=== PATIENT | male | born 1940 | race Caucasian/White ===

== ENCOUNTER 2024-03-25 16:42 | Inpatient (IN) | payer MEDICARE, SELFPAY ==
[2024-03-25 16:43] VITALS: BMI 20.7
[2024-03-25 17:09] VITALS: BP 98/63; PULSE 75; RESP 20; TEMP 36.9; O2SAT 96
--- NOTE | 2024-03-25 17:10 | XR_ITS ---
Examination: Right femur 2 views Technique: AP lateral right femur 2 views Exam date and time: March 25, 2024 at 1744 hrs. Indications: Patient fell today with injury to the femur, femur pain. Findings: Acute intertrochanteric fracture right hip, no significant displacement Shaft of the femur intact Impression: Acute intertrochanteric fracture right hip
--- NOTE | 2024-03-25 17:10 | XR_ITS ---
Examination:Right hip AP, lateral, AP pelvis 3 views Technique: Hip AP lateral, AP pelvis, 3 views Exam date and time: March 25, 2024 1737 hrs. Indications: Patient fell today with into the right hip, right hip pain. Findings: Acute intertrochanteric fracture right hip No significant displacement Left hip bones of the pelvis intact Impression: Acute intertrochanteric fracture right hip
--- NOTE | 2024-03-25 17:10 | XR_ITS ---
Examination: Knee, right , 3 views Technique: Knee AP, lateral, oblique 3 views Date and time of exam: 22 hours Indications: Patient fell today with injury to the knee, knee pain. Findings: No fracture or dislocation Small knee effusion Impression: No fracture or dislocation
--- NOTE | 2024-03-25 17:11 | PD.EDRME ---
Rapid Medical Screening Exam RME Arrival date/time: 03/25/24 16:42 84-year-old male presents emergency department complains of right knee pain right upper leg pain and hip pain after fall today Chief Complaint: Fall Vital signs: Vital Signs Temperature 98.5 F 03/25/24 17:09 Pulse Rate 75 03/25/24 17:09 Respiratory Rate 20 03/25/24 17:09 Blood Pressure 98/63 03/25/24 17:09 Pulse Oximetry (%) 96 03/25/24 17:09 Oxygen Delivery Method Room Air 03/25/24 17:09
--- NOTE | 2024-03-25 18:31 | EDNOTE_ITS ---
ED Fall Injury RME/HPI General Chief Complaint: Fall Stated Complaint: FALL C/O RT SIDE LEG/HIP PAIN Arrival date/time: 03/25/24 16:42 Limitations: no limitations RME / HPI RME / HPI Narrative: DR. ROBERTS MAIN ED EVALUATION: 84 year old male presents to the Emergency Department with complaints right knee pain, right upper leg pain, and right hip pain secondary to fall. Pain is described as aching and rated mild to moderate in severity. Movement exacerbates the pain. Patient was trying to get up his trailer stairs, which is about 2 feet up and fell down on his right side. The fall happened today at 430 PM. No numbness or weakness. No head trauma, no loss of consciousness. PMHx: Left shoulder replacement surgery. GERD, hypertension, and high cholesterol. Social Hx: No tobacco, alcohol, or substance use. Related Data Home Medications ?Medication ?Instructions ?Recorded ?Confirmed amlodipine 10 mg tablet 10 mg PO QDAY 10/11/17 03/25/24 benazepril 20 mg tablet 20 mg PO QDAY 10/11/17 03/25/24 oxycodone-acetaminophen 10 mg-325 0.5 tab PO BID PRN pain 10/11/17 03/25/24 mg tablet simvastatin 40 mg tablet 40 mg PO QDAY 10/11/17 03/25/24 Allergies Allergy/AdvReac Type Severity Reaction Status Date / Time No Known Allergies Allergy Verified 03/25/24 16:45 Review of Systems Review of Systems Systems Reviewed: All systems reviewed, normal except as documented Narrative Review of Systems: GEN: No fever, no chills, no weight loss EYES: No discharge, no visual changes, no pain HEENT: No ear pain, no congestion, no sore throat PULM: No shortness of breath, no cough, no congestion CV: No chest pain, no dyspnea on exertion, no palpitations GI: No nausea, no vomiting, no diarrhea, no pain, no constipation : No frequency, no urgency and no dysuria MUSC/SKEL: + right knee pain, + right upper leg pain, + right hip pain (secondary to fall see HPI) no back pain SKIN: No rash PSYCH: No hallucinations, no depression HEME/LYMPH: No easy bleeding or bruising tendencies NEURO: No weakness, no headache Past Medical History Social History SMOKING STATUS: Never smoker SUBSTANCE USE: does not use ALCOHOL: Never ED Exam Narrative Physical exam: Exam no obvious deformity on the right upper extremity that is noted while sitting in a wheelchair. Patient is fully clothed and will need to ingest him when he gets into a bed. Normal sensation to touch on the lower extremity. No obvious bleeding on his close. General Limitations: Present no limitations Head Head exam: Present atraumatic; Absent normocephalic Eye Eye exam: Present normal appearance and EOMI ENT ENT exam: Present mucous membranes moist Neck Neck exam: Present full ROM and trachea midline; Absent normal inspection, tenderness, meningismus or lymphadenopathy Respiratory Respiratory exam: Present normal lung sounds bilaterally; Absent respiratory distress, wheezes or stridor Cardiovascular Cardiovascular exam: Present regular rate and normal rhythm; Absent systolic murmur or diastolic murmur Abdominal Exam Abdominal exam: Absent soft, distention, tenderness or guarding Extremities Exam Extremities exam: Present normal inspection and other (Not shortened. Not externally rotated. Tender palpation along the left hip. No ecchymosis.) Back Exam Back exam: Present normal inspection, straight leg raise (R) and straight leg raise (L) (Limited the pain); Absent tenderness, CVA tenderness (R) or CVA tenderness (L) Psychiatric Psychiatric exam: Present normal affect and normal mood; Absent depressed or agitated Skin Skin exam: Present warm, dry and intact; Absent rash, cyanosis, diaphoresis, erythema, pallor or mottled Course Course Course Narrative: Placed into room. All xrays were obtained. Quality Measures none Orders Category Date Time Status COVID-19 Screening Questionnaire NOW Care 03/25/24 20:34 Active Consent [Obtain Written Consent For:] .ONCE Care 03/25/24 20:39 Active Decision to Admit X1 Care 03/25/24 20:34 Completed Insert IV NOW Care 03/25/24 18:15 Active Consult to Orthopedic Stat Cons 03/25/24 21:01 Ordered XR femur RT 2V Stat Exams 03/25/24 17:10 Completed XR hip RT w pelvis 2-3V Stat Exams 03/25/24 17:10 Completed XR knee RT 3V Stat Exams 03/25/24 17:10 Completed CBC Stat Lab 03/25/24 18:27 Completed Comprehensive Metabolic Panel Stat Lab 03/25/24 18:27 Completed Partial Thromboplastin Time Stat Lab 03/25/24 18:27 Completed Prothrombin Time with INR Stat Lab 03/25/24 18:27 Completed Morphine Inj Med 03/25/24 20:17 Discontinued 4 mg IVP X1 ONE Ondansetron Inj [Zofran Inj] Med 03/25/24 20:17 Discontinued 4 mg IV X1 ONE Reevaluation(s) Reevaluation #1: pain improved Time: 21:32 Vital Signs Vital signs: Vital Signs Temperature 98.5 F 03/25/24 17:09 Pulse Rate 75 03/25/24 17:09 Respiratory Rate 20 03/25/24 17:09 Blood Pressure 98/63 03/25/24 17:09 Pulse Oximetry (%) 96 03/25/24 17:09 Oxygen Delivery Method Room Air 03/25/24 17:09 Procedures -ED EKG Interpretation #1: Date of EK03/25/24 Time of EK:50 Rate: 64 Interpretation: Interpreted by me Additional EKG comment: Left bundle branch block First-degree AV block. IN interval 222. Impression left bundle branch block. First-degree AV block. No previous EKG. Fall MDM Narrative MDM Narrative:: I, Silke Londono am scribing for and in the presence of Dr. Roberts. Patient presents with mechanical fall. The patient does not have chest pain or shortness of breath. EKG noted to have left bundle branch block. The patient does have history of high cholesterol, hypertension, no diabetes. At this time I do not feel the patient is having an MA. There is no Sgarbossa criteria on the EKG. And no previous family for comparison. Patient data External records reviewed:: [facility] [place] previous records (Reviewed last ED visit dated 10/11/17, discharged with the following: Finger sprain.) Clinical information provided by:: patient and family Social determinants that could affect healthcare access:: none Patient has the following chronic illnesses:: Left shoulder replacement surgery. GERD, hypertension, and high cholesterol. How is presenting disease/condition affected by chronic disease/condition?: uneffected by Evaluation data The following diagnostics were reviewed and interpreted by me:: lab results and radiology exam(s) Lab and/or radiology exams considered but not ordered:: none Interpretation Summary: Procedure(s): XR knee RT 3V Accession Number(s): [id number] cc: Bipin (MAC),Nathan WATTS; Joseph Raya MD; NO PRIMARY/FAMILY,PHYSICIAN~ Examination: Knee, right , 3 views Technique: Knee AP, lateral, oblique 3 views Date and time of exam: 22 hours Indications: Patient fell today with injury to the knee, knee pain. Findings: No fracture or dislocation Small knee effusion Impression: No fracture or dislocation Dictated By: Joseph Raya MD Procedure(s): XR hip RT w pelvis 2-3V Accession Number(s): [id number] cc: Bipin (MAC),Nathan WATTS; Joseph Raya MD; NO PRIMARY/FAMILY,PHYSICIAN~ Examination:Right hip AP, lateral, AP pelvis 3 views Technique: Hip AP lateral, AP pelvis, 3 views Exam date and time: March 25, 2024 1737 hrs. Indications: Patient fell today with into the right hip, right hip pain. Findings: Acute intertrochanteric fracture right hip No significant displacement Left hip bones of the pelvis intact Impression: Acute intertrochanteric fracture right hip Dictated By: Joseph Ryaa MD Procedure(s): XR femur RT 2V Accession Number(s): [id number] cc: Bipin ([employer]),Nathan WATTS; Joseph Raya MD; NO PRIMARY/FAMILY,PHYSICIAN~ Examination: Right femur 2 views Technique: AP lateral right femur 2 views Exam date and time: March 25, 2024 at 1744 hrs. Indications: Patient fell today with injury to the femur, femur pain. Findings: Acute intertrochanteric fracture right hip, no significant displacement Shaft of the femur intact Impression: Acute intertrochanteric fracture right hip Dictated By: Joseph Raya MD Medications / Prescriptions Medications or Prescriptions considered but not ordered:: none Medication administrations:: Medication Administration History Hydrocodone Bitart/Acetaminophen (Hydrocodone/Apap 5/325 Tablet) 1 tab PO Q6HR PRN PRN Reason: Pain 4-6 Stop: 03/30/24 21:19 Folic Acid (Folic Acid 1 Mg Tablet) 1 mg PO BID [facility] Stop: 03/31/24 08:59 Lorazepam (Lorazepam 0.5 Mg Tablet) 0.5 mg PO Q4HR PRN PRN Reason: CIWA Score 2-6 Stop: 03/30/24 21:19 Lorazepam (Lorazepam 0.5 Mg Tablet) 1 mg PO Q4HR PRN PRN Reason: CIWA SCORE 7-11 Stop: 03/30/24 21:19 Lorazepam (Lorazepam 0.5 Mg Tablet) 2 mg PO Q4HR PRN PRN Reason: CIWA SCORE 12-15 Stop: 03/30/24 21:19 Morphine Sulfate (Morphine Sulf Inj 10 Mg/Ml Vial) 2 mg IVP Q4HR PRN PRN Reason: PAIN SCALE 7-10 (Severe Stop: 03/30/24 21:00 Last Admin: 03/26/24 03:15 Dose: 2 mg Documented By: Admin: 03/25/24 23:14 Dose: 2 mg Documented By: AM Ondansetron HCl (Ondansetron Inj 2 Mg/Ml Inj 2 Ml) 4 mg IV Q6H PRN; Protocol PRN Reason: NAUSEA OR VOMITING Stop: 04/24/24 21:00 Pantoprazole Sodium (Pantoprazole Inj 40 Mg Vial) 40 mg IVP QDAY [facility] Stop: 04/25/24 08:59 Thiamine HCl (Thiamine 100 Mg Tablet) 100 mg PO BID [facility] Stop: 03/31/24 08:59 Discontinued Medications Morphine Sulfate (Morphine Sulf Inj 10 Mg/Ml Vial) 4 mg IVP X1 ONE Stop: 03/25/24 20:18 Last Admin: 03/25/24 20:46 Dose: 4 mg Documented By: HEIDI Morphine Sulfate (Morphine Sulf Inj 10 Mg/Ml Vial) 2 mg IVP Q3HR PRN PRN Reason: PAIN SCALE 7-10 (Severe Stop: 03/30/24 21:00 Morphine Sulfate (Morphine Sulf Inj 10 Mg/Ml Vial) 0.5 mg IVP Q4HR PRN PRN Reason: Pain 4-6 Ondansetron HCl (Ondansetron Inj 2 Mg/Ml Inj 2 Ml) 4 mg IV X1 ONE; Protocol Stop: 03/25/24 20:18 Last Admin: 03/25/24 20:41 Dose: 4 mg Documented By: HEIDI see above Consultations Consultation(s) initiated? (list below): Yes Consultation #1 (Physician, Specialty, Details): Discussed test HPI, PMHx, lab, radiology results and/or management with ortho Dr. Gotti. Will consult an admission to the hospitalist. Time: 21:00 Consultation #2 (Physician, Specialty, Details): Discussed test HPI, PMHx, lab, radiology results and/or management with hospitalist. Will admit for further evaluation and management. Accepts patient for admission. Time: 21:05 Diagnosis Fall Differential Diagnosis: other (hip fracture, knee fracture, contusion, UTI,) Most likely diagnosis given after review of the tests above:: As noted below. Admission Indicated Admission indicated?: indicated Admission Request Was there a request for admission?: Yes Admission Attestation Admission request attestation: Discussed case with [] from Hospitalist service regarding admission. Discussed patients ED course, exam findings, labs, and radiology results. The Hospitalist [agrees,declines] to accept the patient for admission. Disposition Plan Disposition Plan: Admit Discharge Plan Plan Patient Disposition: Admit Acute Care w/in Hospital Patient condition on transfer: Stable Problem List Clinical Impression: Hip fracture, Complete left bundle branch block (LBBB), Fall
[2024-03-25 18:44] LABS: Basophils % (Auto) 0 % (0-2.5); Eosinophils # (Auto) 0.1 Thou/mm3 (0.0-0.5); Eosinophils % (Auto) 1 % (0-10); Immature Granulocytes % (Auto) 0 % (0-0); Immature Granulocytes Auto 0.05 Thou/mm3 (0.00-0.00); Lymphocytes % (Auto) 9 % (10-50); Mean Corpuscular HGB Conc 33.3 g/dl (31.0-37.0); Mean Corpuscular Hemoglobin 31.8 pg (25.0-35.0); Mean Corpuscular Volume 95 fL (80-100); Monocytes # (Auto) 0.8 Thou/mm3 (0.0-0.8); Monocytes % (Auto) 7 % (0-12); Neutrophils # (Auto) 9.8 Thou/mm3 (1.8-7.7); Neutrophils % (Auto) 83 % (37-80); Nucleated Red Blood Cell % 0 /100 WBC (0); Platelet Count 225 Thou/mm3 (140-440); RDW Standard Deviation 47.1 fL (35.1-43.9); Red Blood Count 3.46 Miln/mm3 (4.50-5.90); White Blood Count 11.8 Thou/mm3 (3.8-10.6)
[2024-03-25 19:21] LABS: INR 1.1 (0.9-1.3); Partial Thromboplastin Time 25.4 Seconds (22.0-36.0); Prothrombin Time 11.9 Seconds (9.0-12.2)
[2024-03-25 19:22] LABS: Alanine Aminotransferase 15 U/L (10-49); Albumin, Serum 4.7 gm/dL (3.4-4.8); Alkaline Phosphatase 57 U/L (46-116); Anion Gap 7 (7-16); Aspartate Amino Transferase 15 U/L (0-34); BUN/Creatinine Ratio 25 Ratio (12-20); Bilirubin,Total 0.5 mg/dL (0.3-1.2); Blood Urea Nitrogen 25 mg/dL (9-23); Calcium 9.6 mg/dL (8.3-10.6); Calcium (Corrected) 9.6 mg/dL (8.5-10.1); Carbon Dioxide 24.1 mMol/L (20.0-31.0); Chloride 102 mMol/L (98-107); Globulin 2.3 gm/dL (2.3-3.5); Glucose 100 mg/dL (74-106); Osmolality,Calculated 270 (275-295); Sodium 133 mMol/L (136-145); eGFR > 60 See Note
[2024-03-25 19:42] VITALS: BP 135/63; PULSE 71; RESP 18; TEMP 36.8; O2SAT 99
[2024-03-25] MEDS: ONDANSETRON INJ 2 MG/ML INJ 2 ML 4 MG IV (20:41)
[2024-03-25 20:46] VITALS: BP 136/68; PULSE 73; RESP 18; TEMP 36.7; O2SAT 97
[2024-03-25] MEDS: MORPHINE SULF INJ 10 MG/ML VIAL 4 MG IVP (20:46)
--- NOTE | 2024-03-25 20:59 | ESHP_ITS ---
Documentation for date of: 03/25/24 HPI History of Present Illness Chief complaint: Fall History of present illness: 84-year-old male with past medical history of hyperlipidemia, hypertension, metastatic colon cancer (metastasis to liver and lung, s/p lobectomy about 18 years ago) presenting to the ED on 03/25 after he fell from the bed of his trailer, which she states was about 2 feet. Patient denies having any concerning cardiac symptoms prior to the episode; denies having any dizziness, shortness of breath, chest pain/tightness, palpitations or double vision. Patient's fall was unwitnessed; however, patient's who is currently bedside states that she heard him fall and quickly rushed outside to see him. Patient did not lose consciousness and denies hitting his head anywhere at any time during the fall; he states that he fell on his right side and immediately felt sharp pain. Patient has not had a fall in the past; moreover, denies having any symptoms of fever/chills, nausea/vomiting/diarrhea/hematemesis, melena, hematochezia, dysuria or hematuria prior to the episode. Patient follows Dr. Milligan, cardiology, at [facility] where he is from; had an appointment scheduled on Wednesday 03/28, 6-month follow-up. Patient is Hoah[employer]ism; moreover, would like that to be noted in his chart and does not want any type of blood product. Medical history: As stated above Surgical history: Patient has had lumbar back surgery, colon cancer diagnosed 1995-10, colectomy, lobectomy of liver and left upper lobe of lung, last chemo session was about 18 years ago; left shoulder surgery September 2022 Allergies: NKDA Medications: Pending med rec Family history: Noncontributory Social history: Patient is originally from [place], lives in [place] with his , drinks 2 beers a day for the past 10 years, last drink was today, remote history of smoking cigarettes when he was in his early 20s, no illicit drug use ROS: All 12 systems assessed and the patient denies unless otherwise stated in HPI In the ED, patient presented normotensive, normal heart rate, respiratory rate 20, afebrile satting 96 on room air. Pertinent lab findings include WBC 11.8, hemoglobin 11 (MCV 95), platelet 225, sodium 133, potassium 5.0, creatinine 1.0. Imaging studies including knee x-ray, hip pelvis x-ray and femur x-ray confirmed acute right intertrochanteric hip fracture. Patient will be admitted for pain management along with surgery which is scheduled for 03/[address] Gotti, appreciate recommendations. Exam Vital Signs Temp Pulse Resp BP Pulse Ox O2 Del Method 98.2 F 71 18 135/63 H 99 Room Air 03/25/24 19:42 03/25/24 19:42 03/25/24 19:42 03/25/24 19:42 03/25/24 19:42 03/25/24 19:42 Narrative Exam Physical Exam: GENERAL: Awake, answering questions appropriately, appears stated age HEENT: NC/AT. Moist mucosa. PERRLA/EOMI, presbycusis apparent CARDIO: Heart RRR, no obvious murmurs, no JVD. PULM: No coughing or visible SOB. Lungs CTA B/L. GI: Abdomen soft, NT/ND, +BS. SKIN/MSK/EXT: R-hip tender to soft palpation, L hip not tender to palpation. No wounds/discoloration/rashes/edema/amputations. +Pedal pulses present B/L. NEURO: Oriented x3, training and development head strength 5/5, sensations intact bilaterally upper/lower extremities. Moves extremities x3; R lower extremity moves slightly secondary to pain Results: Labs 03/26/24 05:09 03/25/24 18:27 Labs: Short CBC 03/25/24 Range/Units 18:27 WBC 11.8 H (3.8-10.6) Thou/mm3 Hgb 11.0 L (13.5-16.0) g/dL Hct 33.0 L (41.0-53.0) % Plt Count 225 (140-440) Thou/mm3 BMP 03/25/24 18:27 Sodium 133 L Potassium 5.0 Chloride 102 Carbon Dioxide 24.1 BUN 25 H Creatinine 1.0 Glucose 100 Calcium 9.6 Liver Function 03/25/24 Range/Units 18:27 Total Bilirubin 0.5 (0.3-1.2) mg/dL AST 15 (0-34) U/L ALT 15 (10-49) U/L Alkaline Phosphatase 57 (46-116) U/L Albumin 4.7 (3.4-4.8) gm/dL Quality Measures Quality Measures VTE prophylaxis Advance care planning discussed with:: patient Medications Home Medications and Allergies Home Medications ?Medication ?Instructions ?Recorded ?Confirmed ?Type amlodipine 10 mg tablet 10 mg PO QDAY 10/11/17 03/25/24 History benazepril 20 mg tablet 20 mg PO QDAY 10/11/17 03/25/24 History oxycodone-acetaminophen 10 mg-325 0.5 tab PO BID PRN pain 10/11/17 03/25/24 History mg tablet simvastatin 40 mg tablet 40 mg PO QDAY 10/11/17 03/25/24 History Allergies Allergy/AdvReac Type Severity Reaction Status Date / Time No Known Allergies Allergy Verified 03/25/24 16:45 Visit Medications Discontinued Medications Morphine Sulfate (Morphine Sulf Inj 10 Mg/Ml Vial) 4 mg IVP X1 ONE Stop: 03/25/24 20:18 Last Admin: 03/25/24 20:46 Dose: 4 mg Ondansetron HCl (Ondansetron Inj 2 Mg/Ml Inj 2 Ml) 4 mg IV X1 ONE; Protocol Stop: 03/25/24 20:18 Last Admin: 03/25/24 20:41 Dose: 4 mg Assessment & Plan Plan 84-year-old male with past medical history of hyperlipidemia, hypertension, metastatic colon 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 Gotti, appreciate recommendations. #R hip intertrochanteric fracture #Leukocytosis Patient apparently fell from bed of his trailer which was about 2 feet Denies having any concerning symptoms prior to the episode; the fall was unwitnessed but he did not lose consciousness or hit his head Presenting to the ED with sharp right-sided pain; on exam has some tenderness and reduced mobility In the ED, knee x-ray, hip/pelvic x-ray and femur x-ray ordered which confirmed right hip intrathoracic fracture Dr. Gotti, orthopedic surgeon, consulted and will apparently do surgery tomorrow 03/26 In the ED, patient received Zofran and morphine for nausea and pain control Leukocytosis likely secondary to acutely ill status Plan: Multimodal analgesia Zofran as needed for nausea PT consult, patient has been made aware for possible SNF need after surgery N.p.o. after midnight PT/PTT/INR Follow-up with morning labs #Alcohol-use Disorder Patient apparently drinks at least 2 beers a day for the past 10 years or so Last drink was today and apparently he asked for a bottle of beer after falling Plan: Will start CIWA protocol Thiamine and folate ordered #Normocytic Anemia Ddx: MUNDO, AOCD, Zinc/Copper def, aplastic anemia, malignancy, hemolysis and acute blood loss less likely Patient is a Jehova's witness Plan: Iron panel and ferritin ordered #Hypertension #Hyperlipidemia #Hx of Colon CA about 18 years ago #History of MSK surgeries Chronic medical problems Plan: Restart home medications once med rec is completed Hospital Management: Lines - PIV Diet - NPO Bowel - Not needed for now GI prophylaxis - Protonix DVT prophylaxis - SCD Dispo - Pending surgery for R hip fracture with Dr. Gotti (orthopedic surgeron) - appreciate recs Code - Full Patient seen and assessed with attending Dr. Pendleton and senior resident Dr. Derek Almeida, PGY-1 Attending Provider Attestation/Addendum I discussed with and supervised the resident physician who took care of this patient. I agree with the assessment and plan as above. 84-year-old male patient with colon cancer with mets, hypertension, hyperlipidemia, Restorationism,was admitted following a fall. The patient is alert and oriented. He he has a lot of pain from the right hip fracture, he was given IV morphine. He said he fell off his trailer. Patient is being admitted for closed right hip fracture to be seen by Ortho.
[2024-03-25 21:00] VITALS: BP 145/76; PULSE 72; RESP 14; TEMP 36.7; O2SAT 98
--- NOTE | 2024-03-25 21:28 | PC.NURSE ---
Resident Juan Pablo made aware of pt requesting to eat, last meal was breakfast. Resident allowed pt to have a meal until midnight and NPO at midnight for Surgical Intervention by MD claudio.
--- NOTE | 2024-03-25 21:33 | EKG_ITS ---
[facility] Test Date: 2024-03-25 Pat Name: CATIE LINDSAY Department: Room: [address] Gender: Male Cat Swamper: [id number] : 1940 Requested By: Nemo Ruby Order Number: [id number] Reading MD: Nemo Ruby Measurements Intervals [place] Rate: 61 P: 76 W[place]: 236 QRS: -44 QRSD: 145 T: 81 QT: 453 QTc: 459 Interpretive Statements SINUS RHYTHM WITH FIRST DEGREE AV BLOCK MARKED LEFT AXIS DEVIATION [QRS AXIS < -30] LEFT BUNDLE BRANCH BLOCK [120+ ms QRS DURATION, 80+ ms Q/S IN V1/V2, 85+ ms R IN I/aVL/V5/V6] No previous ECG available for comparison /store/S0/[id number]/[id number].pdf
[2024-03-25 21:40] VITALS: BP 145/76; PULSE 71; RESP 18; O2SAT 98
[2024-03-25 22:19] LABS: Iron 57 mcg/dL (65-175)
[2024-03-25 22:28] VITALS: BMI 20.8
[2024-03-25 22:31] VITALS: BP 136/65; PULSE 72; RESP 19; TEMP 36.9; O2SAT 97
--- NOTE | 2024-03-25 22:54 | PC.NURSE ---
MD kuo notified that pt is still complaining of a lot of pain. They gave x1 4 mg morphine IVP in the ER at approximately 2045 but pt said there is minimal improvement with pain. said to give the scheduled 2 mg morphine and reassess.
--- NOTE | 2024-03-25 23:00 | PC.NURSE ---
MD Michael notified that pt's cardiac nurse practitioner is showing 1st degree AV block and Bundle Branch Block. There hasn't been any EKG's done. said she will order an EKG Stat.
[2024-03-25] MEDS: MORPHINE SULF INJ 10 MG/ML VIAL 2 MG IVP (23:14)
[2024-03-25 23:42] LABS: Ferritin 206 ng/mL (10.5-307.3); Percent Iron Saturation 20 % (20-55); Total Iron Binding Capacity 274 mcg/dL (250-425); Unsaturated Iron Binding 217 (225-295)
[2024-03-26] VITALS (13 sets, daily range): BP systolic 108–154; BP diastolic 53–71; PULSE 64–84; RESP 15–20; TEMP 36.2–37.1; O2SAT 51–100
--- NOTE | 2024-03-26 00:12 | PC.NURSE ---
Pt's mu-ism is Denominational. He does not want any blood transfusions
[2024-03-26] MEDS: MORPHINE SULF INJ 10 MG/ML VIAL 2 MG IVP ×5 (03:15→22:57)
--- NOTE | 2024-03-26 03:52 | PC.NURSE ---
MD Reed made aware that patient is now having episodes of 2nd degree Type 1 AV block.
--- NOTE | 2024-03-26 04:43 | PC.NURSE ---
Addendum entered by Martina Yancey RN 03/26/24 04:54: Assessed patient and patient is denying any chest pain or dizziness Original Note: MD Santamaria made aware that the patient had another episode of 2nd degree Type 1 AV Block and HR of 39
[2024-03-26 05:44] LABS: Basophils % (Auto) 0 % (0-2.5); Eosinophils # (Auto) 0.1 Thou/mm3 (0.0-0.5); Eosinophils % (Auto) 1 % (0-10); Hematocrit 28.8 % (41.0-53.0); Hemoglobin 9.7 g/dL (13.5-16.0); Immature Granulocytes % (Auto) 1 % (0-0); Immature Granulocytes Auto 0.04 Thou/mm3 (0.00-0.00); Lymphocytes # (Auto) 1.1 Thou/mm3 (1.0-4.8); Lymphocytes % (Auto) 13 % (10-50); Mean Corpuscular HGB Conc 33.7 g/dl (31.0-37.0); Mean Corpuscular Hemoglobin 32.3 pg (25.0-35.0); Mean Corpuscular Volume 96 fL (80-100); Monocytes # (Auto) 0.9 Thou/mm3 (0.0-0.8); Monocytes % (Auto) 11 % (0-12); Neutrophils # (Auto) 6.2 Thou/mm3 (1.8-7.7); Neutrophils % (Auto) 74 % (37-80); Nucleated Red Blood Cell % 0 /100 WBC (0); Platelet Count 181 Thou/mm3 (140-440); RDW Standard Deviation 48.4 fL (35.1-43.9); White Blood Count 8.3 Thou/mm3 (3.8-10.6)
[2024-03-26 06:03] LABS: INR 1.1 (0.9-1.3); Partial Thromboplastin Time 25.8 Seconds (22.0-36.0); Prothrombin Time 11.9 Seconds (9.0-12.2)
[2024-03-26 06:32] LABS: Alanine Aminotransferase 12 U/L (10-49); Albumin, Serum 4.2 gm/dL (3.4-4.8); Albumin/Globulin Ratio 2.1 (1.2-2.2); Alkaline Phosphatase 53 U/L (46-116); Anion Gap 7 (7-16); Aspartate Amino Transferase 13 U/L (0-34); BUN/Creatinine Ratio 24 Ratio (12-20); Bilirubin,Total 1.1 mg/dL (0.3-1.2); Blood Urea Nitrogen 19 mg/dL (9-23); Calcium 9.3 mg/dL (8.3-10.6); Calcium (Corrected) 9.3 mg/dL (8.5-10.1); Carbon Dioxide 26.4 mMol/L (20.0-31.0); Chloride 103 mMol/L (98-107); Creatinine (Component) 0.8 mg/dL (0.6-1.3); Estimated Creatinine Clearance 66.4 mL/min (>60); Glucose 105 mg/dL (74-106); Magnesium 2.1 mg/dL (1.6-2.6); Osmolality,Calculated 274 (275-295); Phosphorous 3.8 mg/dL (2.4-5.1); Potassium 4.3 mMol/L (3.4-5.1); Sodium 136 mMol/L (136-145); Total Protein 6.2 gm/dL (5.7-8.2); eGFR > 60 See Note
[2024-03-26] MEDS: PANTOPRAZOLE INJ 40 MG VIAL IVP (08:23)
--- NOTE | 2024-03-26 08:37 | ECHO_ITS ---
Transthoracic Echo Report Ht (in): 70 Wt (lb): 145 Exam Location: Portable Status: Inpatient Peanut Separator: Mel Kang Indications: Procedure Performed: BP: 108 / 53 HR: 68 Rhythm: Sinus Technical Quality: Technically difficult study MEASUREMENTS (Male / Female) Normal Values 2D ECHO LV Diastolic Diameter PLAX 4.7 cm 4.2 - 5.9 / 3.9 - 5.3 cm LV Systolic Diameter PLAX 3.3 cm IVS Diastolic Thickness 0.9 cm 0.6 - 1.0 / 0.6 - 0.9 cm LVPW Diastolic Thickness 0.9 cm 0.6 - 1.0 / 0.6 - 0.9 cm LV Relative Wall Thickness 0.4 LVOT Diameter 2.1 cm Ascending Aorta Diameter 3.6 cm M-MODE Aortic Root Diameter MM 2.8 cm LA Systolic Diameter MM 2.7 cm LA Ao Ratio MM 1.0 AV Cusp Separation MM 2.1 cm DOPPLER AV Peak Velocity 94.7 cm/s AV Peak Gradient 3.6 mmHg AV Mean Gradient 3.0 mmHg AV Velocity Time Integral 19.3 cm LVOT Peak Velocity 90.9 cm/s LVOT Peak Gradient 3.3 mmHg LVOT Velocity Time Integral 18.2 cm LVOT Cardiac Index 2385.2 cm?/min?m? AV Area Cont Eq vti 3.3 cm? AV Area Cont Eq pk 3.3 cm? MV Peak Velocity 87.5 cm/s MV Peak Gradient 3.1 mmHg MV Mean Velocity 50.4 cm/s MV Mean Gradient 1.0 mmHg MV Area PHT 4.2 cm? Mitral E Point Velocity 61.6 cm/s Mitral A Point Velocity 93.1 cm/s Mitral E to A Ratio 0.7 LV E' Lateral Velocity 8.7 cm/s Mitral E to LV E' Lateral Ratio 7.1 LV E' Septal Velocity 8.8 cm/s Mitral E to LV E' Septal Ratio 7.0 FINDINGS Left Ventricle Normal left ventricular size, wall thickness, systolic function with no obvious regional wall motion abnormalities. The ejection fraction is visually estimated at 55-60%. Right Ventricle The right ventricle not well visualized. Left Atrium The left atrium is normal by two-dimensional, color flow and Doppler imaging with no structural abnormalities, no thrombus formation present. Right Atrium Right atrium is not well visualized. Atrial Septum The interatrial septum appears normal with no evidence of a shunt. Aorta The ascending aorta and aortic root is mildly dilated. Mitral Valve The mitral valve is mildly MAC. There is trace mitral valve regurgitation. Aortic Valve The aortic valve is trileaflet and normal by two-dimensional, color flow and Doppler interrogation. There is no significant aortic valve regurgitation. Tricuspid Valve The tricuspid valve is normal by two-dimensional, color flow and Doppler interrogation. There is no significant tricuspid valve regurgitation. Pulmonic Valve There is mild pulmonic valve regurgitation. Vessels The pulmonary artery appears normal. The inferior vena cava pulmonary and hepatic veins appear rsia l. Pericardium The pericardium is normal by two-dimensional imaging. There is no significant pericardial effusion. CONCLUSIONS Indication: Cardiac clearance Suboptimal images due to pectus excavatum Normal LV size and function. Stage I diastolic dysfunction. Estimated EF 55-60% RV and RA not well visualized. The ascending aorta and aortic root is mildly dilated. Mild MAC. Trace MR. Mild PI. Aron Norman (Electronically Signed) Final Date: 26 March 2024 14:40
--- NOTE | 2024-03-26 09:00 | ESCONSULT_ITS ---
HPI Data of Consult Requesting Physician: Evelio Pendleton MD Primary Care Provider: Physician No Primary/Family Consult Narrative Reason for consult: Preoperative cardiac risk assessment as well as question of Mobitz type I History of present illness: 84-year-old male with a past medical history of hypertension, hyperlipidemia, metastatic colon cancer status post resection along with history of lung and liver metastasis post lobectomy in 15 to 20 years ago, Jevohah witness, chronic back pain with history of back surgery presented to the emergency department for further evaluation of a fall. Patient apparently fell from the bed of his trailer and it was an unwitnessed fall and apparently rest of the bedside and he would did not lose consciousness and denied taking any any head after the fall and patient denied any kind of cardiac symptoms including any chest pain chest pressure orthopnea dizziness syncope. Denied any kind of shortness of breath or orthopnea leg swelling. Patient has no history of any prior falls. Patient does follow-up with cardiology Dr. Mliligan in a different [facility] and he sees him every 6 months. Unclear cardiac history Cardiology was consulted for further preoperative cardiac risk evaluation along with question of will be secondary to type I on the telemetry that was noted by the overnight emergency medicine teams. Past Medical history: As stated above Surgical history: Patient has had lumbar back surgery, colon cancer diagnosed 1995-10, colectomy, lobectomy of liver and left upper lobe of lung, last chemo session was about 18 years ago; left shoulder surgery September 2022 Allergies: NKDA. Family history: Noncontributory Social history: Patient is originally from [place], lives in [place] with his , drinks 2 beers a day for the past 10 years, last drink was today, remote history of smoking cigarettes when he was in his early 20s, no illicit drug use. In the ED, patient presented normotensive, normal heart rate, respiratory rate 20, afebrile satting 96 on room air. Pertinent lab findings include WBC 11.8, hemoglobin 11 (MCV 95), platelet 225, sodium 133, potassium 5.0, creatinine 1.0. Imaging studies including knee x-ray, hip pelvis x-ray and femur x-ray confirmed acute right intertrochanteric hip fracture. cc:: cc: Evelio Pendleton MD Review of Systems Review of Systems Systems Reviewed: All systems reviewed, normal except as documented Past Medical History Social History SMOKING STATUS: Never smoker SUBSTANCE USE: does not use ALCOHOL: Never Meds Home Medications and Allergies Home Medications ?Medication ?Instructions ?Recorded ?Confirmed ?Type amlodipine 10 mg tablet 10 mg PO QDAY 10/11/17 03/25/24 History benazepril 20 mg tablet 20 mg PO QDAY 10/11/17 03/25/24 History oxycodone-acetaminophen 10 mg-325 0.5 tab PO BID PRN pain 10/11/17 03/25/24 History mg tablet simvastatin 40 mg tablet 40 mg PO QDAY 10/11/17 03/25/24 History Allergies Allergy/AdvReac Type Severity Reaction Status Date / Time No Known Allergies Allergy Verified 03/25/24 16:45 Exam Vital Signs Temp Pulse Resp BP Pulse Ox O2 Del Method 98.3 F 68 17 122/58 L 51 L Room Air 03/26/24 12:00 03/26/24 12:00 03/26/24 12:00 03/26/24 12:00 03/26/24 12:00 03/26/24 12:00 Results Labs 03/27/24 05:00 03/27/24 05:00 Labs: Short CBC 03/25/24 03/26/24 Range/Units 18:27 05:09 WBC 11.8 H 8.3 (3.8-10.6) Thou/mm3 Hgb 11.0 L 9.7 L (13.5-16.0) g/dL Hct 33.0 L 28.8 L (41.0-53.0) % Plt Count 225 181 D (140-440) Thou/mm3 [facility] 03/25/24 03/26/24 18:27 05:09 Sodium 133 L 136 Potassium 5.0 4.3 D Chloride 102 103 Carbon Dioxide 24.1 26.4 BUN 25 H 19 Creatinine 1.0 0.8 Glucose 100 105 Calcium 9.6 9.3 Liver Function 03/25/24 03/26/24 Range/Units 18:27 05:09 Total Bilirubin 0.5 1.1 D (0.3-1.2) mg/dL AST 15 13 (0-34) U/L ALT 15 12 (10-49) U/L Alkaline Phosphatase 57 53 (46-116) U/L Albumin 4.7 4.2 D (3.4-4.8) gm/dL Assessment and Plan Additional Assessment & Plan Additional Plan: 84-year-old male with a past medical history of hypertension, hyperlipidemia, metastatic colon cancer status post resection along with history of lung and liver metastasis post lobectomy in 15 to 20 years ago, Jevohah witness, chronic back pain with history of back surgery presented to the emergency department for further evaluation of a fall. X-ray of the pelvis and the right femur showed acute commuted right intertrochanteric hip fracture. Cardiology was consulted for further preoperative cardiac risk evaluation along with question of will be secondary to type I on the telemetry that was noted by the overnight emergency medicine teams. 1. Preoperative cardiac risk assessment 2. Abnormal EKG telemetry 3. Acute right intertrochanteric hip fracture status 4. Status post fall 5. Essential HTN 6. Hyperlipidemia 7. Metastatic colon cancer status postresection and status post lobectomy for lung metastasis as well as liver metastasis 20 years ago 8. Jevohah witness 9. Chronic back pain from back surgery 10. Anemia acute versus chronic. Cardiology was consulted for preoperative cardiac risk evaluation but patient was already taken for the surgery and patient is at intermediate risk for the surgery and and reviewed his echocardiogram which showed Suboptimal images due to pectus excavatum Normal LV size and function. Stage I diastolic dysfunction. Estimated EF 55- 60% RV and RA not well visualized. The ascending aorta and aortic root is mildly dilated. Mild MAC. Trace MR. Mild PI. EKG on admission showed normal sinus rhythm with first-degree AV block as well as left bundle branch block. No evidence of any acute ST-T changes suggestive of ischemia. Telemetry showed no evidence of any arrhythmias or heart blocks at the present point of time Patient is going for intermediate risk surgery for his acute comminuted right intertrochanteric fracture. Patient had acceptable but mild to moderately elevated risk for the surgery and recommend no further cardiac workup for now. There was a question of Mobitz type I AV block noted on the telemetry when the patient was in the emergency department. I reviewed the telemetry here and could not see any any evidence of the same and did not see any kind of heart blocks or arrhythmias at the present point of time Keep potassium greater than 4 and magnesium greater than 2.0 at all times. Please obtain the telemetry strips of the events that have been documented previously. Blood pressure has been slightly elevated since admission could be secondary to the pain and recommend to keep it under control. Can start PORTILLO and ARB later for blood pressure control. Patient fall appears to be mechanical fall and there was no evidence of any syncope. Management of rest of the medical conditions as per primary team and other consultants. Thank you for the consult and allowing me to participate in the care of the patient. Cardiology will continue to follow. Aron Norman M.D. Interventional Cardiology
--- NOTE | 2024-03-26 10:03 | PD.SUROPNT ---
Date of Procedure 03/26/24 Pre Op Diagnosis Right hip intertrochanteric fracture Post Op Diagnosis Right hip intertrochanteric fracture Procedure cephalomedullary nail right Findings intertrochanteric fracture Procedure Description Indications Patient is a pleasant 84-year-old male with abdominal fall. We discussed operative treatment with a cephalomedullary nail given the intertrochanteric fracture. Discussed nonoperative operative options. He is a Alev[employer] and thus would not want a blood transfusion. He understands the risk of surgery and would like to proceed with surgery Procedure in detail The patient was brought to the [place] table and was prepped and draped in the usual sterile fashion. We first obtained prereduction fluoroscopy films. We reduced it with traction and gentle internal rotation. Once an adequate reduction was performed, the patient was prepped and draped in usual sterile fashion. A trochanteric starting point was found using an awl. An entry wire was inserted followed by an opening reamer. We then inserted a 10 mm 130 degrees short gamma nail into the femur and ensured that it was reduced. We then inserted a wire into the 130 degree holding the jig and try to ensure that was center center on both the AP and lateral films. We then used a drill and inserted 105 mm screw. We ensured on both AP and lateral fluoroscopy views that we were in good position. We then used the static interlock hole through the JV and used a 30 7.5 millimeter screw. The patient was closed in the usual sterile fashion with Vicryl and Monocryl. Patient is to be weightbearing as tolerated Anesthesia [employer] [place] gamma Pathology / specimen None Pathology comment: none Estimated Blood Loss 100 Surgeon Kingsley Gotti MD Surgical Staff Operation Date: 03/26/24 16:15 <No data on this case meets the specified criteria>
--- NOTE | 2024-03-26 10:04 | PD.ORTHCON ---
HPI Consult details Reason for consultation narrative: Right hip fracture History of present illness: Patient is a 84-year-old male who is a baseline ambulator with no assistive device with a ground-level fall yesterday from a trailer. He denies any other pain except his hip. The pain he reports is in the groin. He is very functional at home and uses no assist device and lives with his . Denies any pain prior to the fall. There is no syncopal episode and denies hitting his head. Review of Systems Review of Systems Narrative Review of Systems: Negative except as otherwise noted Meds Home Medications and Allergies Home Medications ?Medication ?Instructions ?Recorded ?Confirmed ?Type amlodipine 10 mg tablet 10 mg PO QDAY 10/11/17 03/25/24 History benazepril 20 mg tablet 20 mg PO QDAY 10/11/17 03/25/24 History oxycodone-acetaminophen 10 mg-325 0.5 tab PO BID PRN pain 10/11/17 03/25/24 History mg tablet simvastatin 40 mg tablet 40 mg PO QDAY 10/11/17 03/25/24 History Allergies Allergy/AdvReac Type Severity Reaction Status Date / Time No Known Allergies Allergy Verified 03/25/24 16:45 Exam Vital Signs Temp Pulse Resp BP Pulse Ox O2 Del Method 98.3 F 68 17 108/53 L 97 Room Air 03/26/24 08:00 03/26/24 08:00 03/26/24 08:00 03/26/24 08:00 03/26/24 08:00 03/26/24 08:00 Additional findings Additional findings: Patient is in no acute distress and is cooperative with the examination today. Breathing is nonlabored. In no respiratory distress. Bilateral extremities were evaluated and demonstrates sensation intact to light touch. Palpable pedal pulses are present. No significant edema is present. No paraspinal tenderness is present. Left hip is nontender to palpation. He has no pain with logroll. Negative [place]. Right hip is tender to palpation and the patient has a positive logroll. It is not significantly shortened. It is externally rotated. positive DP and PT pulses Results - Ortho Labs 03/26/24 05:09 03/26/24 05:09 Labs: Short CBC 03/25/24 03/26/24 Range/Units 18:27 05:09 WBC 11.8 H 8.3 (3.8-10.6) Thou/mm3 Hgb 11.0 L 9.7 L (13.5-16.0) g/dL Hct 33.0 L 28.8 L (41.0-53.0) % Plt Count 225 181 D (140-440) Thou/mm3 BMP 03/25/24 03/26/24 18:27 05:09 Sodium 133 L 136 Potassium 5.0 4.3 D Chloride 102 103 Carbon Dioxide 24.1 26.4 BUN 25 H 19 Creatinine 1.0 0.8 Glucose 100 105 Calcium 9.6 9.3 Liver Function 03/25/24 03/26/24 Range/Units 18:27 05:09 Total Bilirubin 0.5 1.1 D (0.3-1.2) mg/dL AST 15 13 (0-34) U/L ALT 15 12 (10-49) U/L Alkaline Phosphatase 57 53 (46-116) U/L Albumin 4.7 4.2 D (3.4-4.8) gm/dL Imaging Xray: Additional comments: Right hip x-rays demonstrate a intertrochanteric fracture of the right hip. It is not significantly displaced Assessment & Plan Problem List (1) Hip fracture: Status: Acute Assessment and plan: Patient is a 84-year-old male with a right hip intertrochanteric fracture that occurred yesterday after a ground-level fall. He is a baseline ambulator with no assistive device. We discussed surgical fixation of his fracture with a cephalomedullary nail. We also discussed nonoperative treatment and that this would allow result in prolonged immobilization. We discussed the risk of surgery including infection, bleeding, malunion, nonunion, medical complications from surgery. He is a Evangelical and wants no blood no matter what. We discussed with him that we will plan for a cephalomedullary nail and that blood is usually not required but it is certainly possible. I discussed with him that I would not give him blood and will continue with his wishes no matter what. I also discussed the case with his daughter and . They are in agreement to proceed with a cephalomedullary nail. The risk and benefits were explained to the patient and his site when his consent was placed in the chart. -Plan for or today -N.p.o.
--- NOTE | 2024-03-26 14:30 | XR_ITS ---
Examination: AP lateral right hip 11 views Fluoroscopy Exam date and time: March 26, 2024 1555 hours INDICATIONS: Acute intertrochanteric fracture right hip on femur films March 25, 2024, patient fell TECHNIQUE AND FINDINGS: 11 spot process mechanic AP lateral hip films Operative reduction internal fixation right hip fracture with anatomic alignment Orthopedic hardware satisfactory position Fluoroscopy 80 seconds radiation dose 13.63 milligray IMPRESSION: Operative reduction internal fixation right hip fracture with anatomic alignment
--- NOTE | 2024-03-26 14:32 | ESPR_ITS ---
Documentation for date of: 03/26/24 Subjective Subjective Interval history: No acute events overnight. Patient received morphine overnight. Patient states pain is 10/10 when he moves his leg. Otherwise it is 7/10 and tolerable. He has no other complaints. He reiterates that he is Yazidi and refuses blood products even if it is a life threatening situation. Exam Vital Signs Temp Pulse Resp BP Pulse Ox O2 Del Method 98.3 F 68 17 122/58 L 51 L Room Air 03/26/24 12:03/26/24 12:00 03/26/24 12:03/26/24 12:00 03/26/24 12:00 03/26/24 12:00 Narrative Exam General: Well appearing, well nourished, in no distress HEENT: Normocephalic, atraumatic, conjunctiva clear, sclera non-icteric, EOM intact Heart: Regular rate and rhythm, no murmur or gallop Lungs: Clear to auscultation, no wheezes Abdomen: soft, nontender to palpation, non distended Extremities: No amputations or deformities, cyanosis, edema or varicosities, peripheral pulses intact, <2 sec cap refill of B/L LE, Limited ROM of RLE due to pain, right trochanteric point tenderness Neurologic: Moves all extremities spontaneously, A&Ox4 Psychiatric: Cooperative, normal mood and affect. Objective Labs 03/27/24 05:00 03/27/24 05:00 Labs: Laboratory Results - last 24 hr 03/25/24 03/26/24 18:27 05:09 WBC 11.8 H 8.3 RBC 3.46 L 3.00 L Hgb 11.0 L 9.7 L Hct 33.0 L 28.8 L MCV 95 96 MCH 31.8 32.3 MCHC 33.3 33.7 RDW Std Deviation 47.1 H 48.4 H Plt Count 225 181 D Neut % (Auto) 83 H 74 Lymph % (Auto) 9 L 13 [place] % (Auto) 7 11 Eos % (Auto) 1 1 Baso % (Auto) 0 0 Neut # (Auto) 9.8 H 6.2 Lymph # (Auto) 1.0 1.1 [place] # (Auto) 0.8 0.9 H Eos # (Auto) 0.1 0.1 Baso # (Auto) 0.0 0.0 Immature Gran # (Auto) 0.05 H 0.04 H Absolute Nucleated RBC 0.00 0.00 Immature Gran % 0 1 H Nucleated RBC % 0 0 PT 11.9 11.9 INR 1.1 1.1 APTT 25.4 25.8 Sodium 133 L 136 Potassium 5.0 4.3 D Chloride 102 103 Carbon Dioxide 24.1 26.4 Anion Gap 7 7 BUN 25 H 19 Creatinine 1.0 0.8 Estim Creat Clear Calc 53.0 L 66.4 eGFR > 60 > 60 BUN/Creatinine Ratio 25 H 24 H Glucose 100 105 Calculated Osmolality 270 L 274 L Calcium 9.6 9.3 Corrected Calcium 9.6 9.3 Phosphorus 3.8 Magnesium 2.1 Iron 57 L TIBC 274 Iron Saturation 20 Unsat Iron Binding 217 L Ferritin 206 Total Bilirubin 0.5 1.1 D AST 15 13 ALT 15 12 Alkaline Phosphatase 57 53 Total Protein 7.0 6.2 Albumin 4.7 4.2 D Globulin 2.3 2.0 L Albumin/Globulin Ratio 2.0 2.1 Quality Measures Quality Measures VTE prophylaxis Advance care planning discussed with:: patient Assessment & Plan Assessment Current Active Medications: Generic Name Dose Route Start Last Admin Trade Name Freq PRN Reason Stop Dose Admin Hydrocodone Bitart/Acetaminophen 1 tab 03/25/24 21:20 Hydrocodone/Apap 5/325 Tablet PO 03/30/24 21:19 Q6HR PRN Pain 4-6 Folic Acid 1 mg 03/26/24 09:00 03/26/24 09:00 Folic Acid 1 Mg Tablet PO 03/31/24 08:59 Not Given BID JOSE Morphine Sulfate 2 mg 03/25/24 21:08 03/26/24 12:32 Morphine Sulf Inj 10 Mg/Ml Vial IVP 03/30/24 21:00 2 mg Q4HR PRN Administration PAIN SCALE 7-10 (Severe Ondansetron HCl 4 mg 03/25/24 21:01 Ondansetron Inj 2 Mg/Ml Inj 2 Ml IV 04/24/24 21:00 Q6H PRN NAUSEA OR VOMITING Protocol Pantoprazole Sodium 40 mg 03/26/24 09:00 03/26/24 08:23 Pantoprazole Inj 40 Mg Vial IVP 04/25/24 08:59 40 mg QDAY JOSE Administration Sennosides 1 tab 03/26/24 09:00 03/26/24 09:00 Senna Tablet PO 04/25/24 08:59 Not Given QDAY [facility] Protocol Thiamine HCl 100 mg 03/26/24 09:00 03/26/24 09:00 Thiamine 100 Mg Tablet PO 03/31/24 08:59 Not Given BID JOSE Plan 84-year-old male with past medical history of hyperlipidemia, hypertension, metastatic colon 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 Gotti, appreciate recommendations. #R hip intertrochanteric fracture s/p surgery #Leukocytosis Patient apparently fell from bed of his trailer which was about 2 feet Denies having any concerning symptoms prior to the episode; the fall was unwitnessed but he did not lose consciousness or hit his head Presenting to the ED with sharp right-sided pain; on exam has some tenderness and reduced mobility In the ED, knee x-ray, hip/pelvic x-ray and femur x-ray ordered which confirmed right hip intratrochanteric fracture Dr. Gotti, orthopedic surgeon, consulted and will do surgery today 03/26 In the ED, patient received Zofran and morphine for nausea and pain control Leukocytosis likely secondary to acutely ill status Plan: Multimodal analgesia Zofran as needed for nausea PT consult, patient has been made aware for possible SNF need after surgery PT/PTT/INR #Alcohol-use Disorder Patient drinks 2 beers daily, but rarely drinks more than that Plan: Will continue to monitor, CIWA 0 Thiamine and folate ordered #Normocytic Anemia Ddx: MUNDO, AOCD, Zinc/Copper def, aplastic anemia, malignancy, hemolysis and acute blood loss less likely Patient is a Yazidism Plan: Iron panel and ferritin ordered CBC #Hypertension Resume Amlodipine 10mg PO QD Resume Benazepril 20mg PO QD #Hyperlipidemia Resume Simvastatin 40mg PO QD #Hx of Colon CA about 18 years ago In remission Follow up outpatient Hospital Management: Lines - PIV Diet - Regular Bowel - Senna GI prophylaxis - Protonix DVT prophylaxis - Eliquis 2.5mg BID Dispo - Pending surgery for R hip fracture with Dr. Gotti (orthopedic surgeron) - appreciate recs Code - Full The patient's plan was discussed with attending Dr. Plascencia and senior residents Dr. Garrett and Zechariah Becerril, PGY1 Internal Medicine Senior resident attestation: Patient evaluated and examined at the bedside, plan of care discussed with rest of the team including my attending physician, except as noted. 84-year-old male, remote history of metastatic colon cancer, hypertension hyperlipidemia who presented now with mechanical fracture of the right hip intertrochanteric fracture, admitted for surgical repair. Dr. Gotti orthopedic surgeon to consult. Patient sees a acetaldehyde converter operator, but is unsure of indication, takes statin and blood pressure medications at home, reports no history of arrhythmias or ischemic heart disease. Of note EKG showed first-degree AV block. Overnight team reported episode of bradycardia, heart rate dropped into the 39/min during sleep. Also reported second-degree AV block Mobitz type I during the episode of bradycardia. We ordered echocardiogram and consulted cardiology for possible cardiac clearance, but orthopedics was comfortable with taking the patient to the OR. #Right hip intertrochanteric fracture s/p surgery ?Analgesia per orthopedic surgeon ? Physical therapy consult ? DVT prophylaxis post hip repair, Eliquis 2.5 mg to be continued for 3 to 4 weeks, up to 35 days to be started from tomorrow. #Concern for alcohol abuse Admitting team was concern for alcohol abuse disorder, but patient reported he drinks only 2 beers per day and rarely drinks more than that, CIWA score 0, we will discontinue CIWA order set to avoid medication error in the setting of postop opioid analgesia. Will reevaluate patient if patient develops withdrawal symptoms. Tami PGY2 Attending Provider Attestation/Addendum I have examined the patient, reviewed labs and imaging findings, discussed the case with the resident(s), and reviewed entered orders. I agree with the plan of care as outlined in this note, with these additional summaries/recommendations: Patient seen at bedside. No acute overnight events. Patient's only complaint today is right hip pain which is controlled with IV pain medication. Patient was admitted overnight for acute right intertrochanter fracture after a ground- level mechanical fall. He denies hitting his head or losing consciousness. Orthopedics was consulted and patient will go for surgical correction today 03/26/2024. Continue pain management with IV morphine and oral [place]. Hold home Norvasc and Benazepril for now and will reinstitute as tolerated. Physical therapy ordered. Patient is possibly open to SNF when medically cleared for discharge. We will resume diet when able. Cardiology following for cardiac clearance. Repeat hematology and chemistry panel in AM. Of note patient is a Yazidi and declines all blood products. Dr. Plascencia
--- NOTE | 2024-03-26 14:44 | PC.SS ---
Follow up note: Pt is having surgery today for Right Hip FX.
--- NOTE | 2024-03-26 15:44 | XR_ITS ---
Examination: Right hip AP lateral AP pelvis 3 views TECHNIQUE: AP lateral right hip, AP pelvis total 3 views Exam date and time: March 26, 2024 1625 hours INDICATIONS: Postop reduction internal fixation hip fracture. FINDINGS: Postop reduction internal fixation right intertrochanteric hip fracture Anatomic alignment Satisfactory position orthopedic hardware IMPRESSION: Postop reduction internal fixation intertrochanteric fracture right hip with anatomic alignment
--- NOTE | 2024-03-26 15:57 | SUR.PHASEI ---
pt received from OR in recovery bay 5. pt asleep but responds to voice, breathing unlabored on 6l oxymask. v/s stable. pt dressing to right hip cdi. report received from Ben SOUZA and Frank Ann.
[2024-03-26] MEDS: HYDROmorphone INJ 2 MG/ML VIAL 0.4 MG IVP (16:19)
--- NOTE | 2024-03-26 16:40 | SUR.PHASEI ---
pt asleep but responds to voice, breathing unlabored on 2l nc. v/s stable. pt dressing to right hip cdi. report called to Darlyn CORBETT. pt will be transferred to room at this time.
[2024-03-26] MEDS: ceFAZolin/D5W 2 GM IV 2 G/100 ML BAG IV (18:06)
[2024-03-26] MEDS: APIXABAN 2.5 MG TABLET PO (20:32)
[2024-03-26] MEDS: THIAMINE 100 MG TABLET PO (20:32)
[2024-03-26] MEDS: ATORVASTATIN CALCIUM 20 MG TABLET PO (20:32)
[2024-03-26] MEDS: FOLIC ACID 1 MG TABLET PO (20:32)
[2024-03-26] MEDS: HYDROcodone/APAP 5/325 TABLET 1 TAB PO (20:33)
[2024-03-27] VITALS (8 sets, daily range): BP systolic 119–148; BP diastolic 59–71; PULSE 73–97; RESP 14–18; TEMP 36.8–37.2; O2SAT 92–98; BMI 12.0
[2024-03-27] MEDS: MORPHINE SULF INJ 10 MG/ML VIAL 2 MG IVP ×2 (03:05→08:01)
[2024-03-27 06:00] LABS: Basophils % (Auto) 0 % (0-2.5); Eosinophils % (Auto) 0 % (0-10); Hematocrit 29.6 % (41.0-53.0); Hemoglobin 9.9 g/dL (13.5-16.0); Immature Granulocytes % (Auto) 1 % (0-0); Immature Granulocytes Auto 0.06 Thou/mm3 (0.00-0.00); Lymphocytes % (Auto) 8 % (10-50); Mean Corpuscular HGB Conc 33.4 g/dl (31.0-37.0); Mean Corpuscular Hemoglobin 32.6 pg (25.0-35.0); Mean Corpuscular Volume 97 fL (80-100); Monocytes # (Auto) 1.3 Thou/mm3 (0.0-0.8); Monocytes % (Auto) 11 % (0-12); Neutrophils # (Auto) 9.7 Thou/mm3 (1.8-7.7); Neutrophils % (Auto) 80 % (37-80); Nucleated Red Blood Cell % 0 /100 WBC (0); Platelet Count 184 Thou/mm3 (140-440); RDW Standard Deviation 47.2 fL (35.1-43.9); Red Blood Count 3.04 Miln/mm3 (4.50-5.90); White Blood Count 12.1 Thou/mm3 (3.8-10.6)
[2024-03-27 06:27] LABS: Alanine Aminotransferase 10 U/L (10-49); Albumin, Serum 3.9 gm/dL (3.4-4.8); Albumin/Globulin Ratio 1.6 (1.2-2.2); Alkaline Phosphatase 50 U/L (46-116); Anion Gap 10 (7-16); Aspartate Amino Transferase 16 U/L (0-34); BUN/Creatinine Ratio 19 Ratio (12-20); Bilirubin,Total 0.8 mg/dL (0.3-1.2); Blood Urea Nitrogen 15 mg/dL (9-23); Calcium 9.6 mg/dL (8.3-10.6); Calcium (Corrected) 9.7 mg/dL (8.5-10.1); Carbon Dioxide 24.3 mMol/L (20.0-31.0); Chloride 103 mMol/L (98-107); Creatinine (Component) 0.8 mg/dL (0.6-1.3); Estimated Creatinine Clearance 66.4 mL/min (>60); Globulin 2.4 gm/dL (2.3-3.5); Glucose 98 mg/dL (74-106); Osmolality,Calculated 274 (275-295); Potassium 4.2 mMol/L (3.4-5.1); Sodium 137 mMol/L (136-145); Total Protein 6.3 gm/dL (5.7-8.2); eGFR > 60 See Note
[2024-03-27] MEDS: PANTOPRAZOLE INJ 40 MG VIAL IVP (08:04)
[2024-03-27] MEDS: SENNA TABLET 1 TAB PO (08:05)
[2024-03-27] MEDS: THIAMINE 100 MG TABLET PO ×2 (08:05→20:00)
[2024-03-27] MEDS: amLODIPine BESYLATE 5 MG TABLET 10 MG PO (08:05)
[2024-03-27] MEDS: Lisinopril 20 MG TABLET PO (08:06)
[2024-03-27] MEDS: FOLIC ACID 1 MG TABLET PO ×2 (08:07→20:00)
[2024-03-27] MEDS: APIXABAN 2.5 MG TABLET PO ×2 (08:07→20:00)
[2024-03-27] MEDS: ACETAMINOPHEN 500 MG TABLET 1000 MG PO ×2 (09:07→20:00)
--- NOTE | 2024-03-27 10:51 | PC.SS ---
Initial assessment: This is 84 year old male admitted for hip fracture. Patient appeared alert and oriented. Patient informs he lives alone at home with his , Idalia. Patient confirmed demographic information. Patient's , Idalia Mcleod was identified as the patient's alternate medical surrogate decision maker. Patient describes to be independent with ADL's prior to hip surgery. Patient denies use of DME at home. Patient's PCP is Dr. Adelfo Milligan. The discharge plan was discussed, and the patient would like SNF placement, no preferred at this time. Provided patient's with local SNF lists to determine preference. visitor services representative to remain available to address further concerns. D/c plan: SNF Next of kin: Idalia
--- NOTE | 2024-03-27 11:08 | PC.SS ---
Addendum entered by DAYANARA Livingston 03/27/24 16:00: Preferred SNF is [facility], per patient's , Idalia Mcleod. Virgen at [facility] confirms they can accept the patient at time of discharge. Addendum entered by DAYANARA Livingston 03/27/24 13:44: PASRR completed. level 1. Original Note: SNF inquiry sent via [employer]. Pending responses.
--- NOTE | 2024-03-27 13:18 | PD.RESPRO ---
Documentation for date of: 03/27/24 Subjective Subjective Interval history: He reports that his pain is 10/10. He states that the morphine helped a little bit but requests more pain meds. HE states that he was able to stand at bedside with PT this morning. He denies N/V and reports that he is tolerating his diet but wasn't very hungry this morning. Exam Vital Signs Temp Pulse Resp BP Pulse Ox O2 Del Method O2 Flow Rate 98.2 F 76 16 119/66 93 L Nasal Cannula 1.5 03/27/24 12:00 03/27/24 12:00 03/27/24 12:00 03/27/24 12:00 03/27/24 12:00 03/27/24 12:00 03/27/24 12:00 Narrative Exam General: Well appearing, well nourished, in no distress HEENT: Normocephalic, atraumatic, conjunctiva clear, sclera non-icteric, EOM intact Heart: Regular rate and rhythm, no murmur or gallop Lungs: Clear to auscultation, no wheezes Abdomen: soft, nontender to palpation, non distended Extremities: No amputations or deformities, cyanosis, edema or varicosities, peripheral pulses intact, <2 sec cap refill of B/L LE, Limited ROM of RLE due to pain, right trochanteric point tenderness, no hematoma Neurologic: Moves all extremities spontaneously, A&Ox4 Psychiatric: Cooperative, normal mood and affect. Objective Labs 03/28/24 05:25 03/28/24 05:25 Labs: Laboratory Results - last 24 hr 03/27/24 05:00 WBC 12.1 H D RBC 3.04 L Hgb 9.9 L Hct 29.6 L MCV 97 MCH 32.6 MCHC 33.4 RDW Std Deviation 47.2 H Plt Count 184 Neut % (Auto) 80 Lymph % (Auto) 8 L [place] % (Auto) 11 Eos % (Auto) 0 Baso % (Auto) 0 Neut # (Auto) 9.7 H Lymph # (Auto) 1.0 [place] # (Auto) 1.3 H Eos # (Auto) 0.0 Baso # (Auto) 0.0 Immature Gran # (Auto) 0.06 H Absolute Nucleated RBC 0.00 Immature Gran % 1 H Nucleated RBC % 0 Sodium 137 Potassium 4.2 Chloride 103 Carbon Dioxide 24.3 Anion Gap 10 BUN 15 Creatinine 0.8 Estim Creat Clear Calc 66.4 eGFR > 60 BUN/Creatinine Ratio 19 Glucose 98 Calculated Osmolality 274 L Calcium 9.6 Corrected Calcium 9.7 Total Bilirubin 0.8 AST 16 ALT 10 Alkaline Phosphatase 50 Total Protein 6.3 Albumin 3.9 Globulin 2.4 Albumin/Globulin Ratio 1.6 Quality Measures Quality Measures VTE prophylaxis Advance care planning discussed with:: patient Assessment & Plan Assessment Current Active Medications: Generic Name Dose Route Start Last Admin Trade Name Freq PRN Reason Stop Dose Admin Acetaminophen 1,000 mg 03/27/24 08:39 03/27/24 09:07 Acetaminophen 500 Mg Tablet PO 04/26/24 08:38 1,000 mg Q8HR PRN Administration Breakthrough Pain Hydrocodone Bitart/Acetaminophen 1 tab 03/25/24 21:20 03/26/24 20:33 Hydrocodone/Apap 5/325 Tablet PO 03/30/24 21:19 1 tab Q6HR PRN Administration Pain 4-6 Amlodipine Besylate 10 mg 03/27/24 09:00 03/27/24 08:05 Amlodipine Besylate 5 Mg Tablet PO 04/26/24 08:59 10 mg QDAY JOSE Administration Apixaban 2.5 mg 03/26/24 21:00 03/27/24 08:07 Apixaban 2.5 Mg Tablet PO 04/25/24 20:59 2.5 mg BID JOSE Administration Atorvastatin Calcium 20 mg 03/26/24 21:00 03/26/24 20:32 Atorvastatin Calcium 20 Mg Tablet PO 04/25/24 20:59 20 mg HS JOSE Administration Folic Acid 1 mg 03/26/24 09:00 03/27/24 08:07 Folic Acid 1 Mg Tablet PO 03/31/24 08:59 1 mg BID JOSE Administration Lisinopril 20 mg 03/27/24 09:00 03/27/24 08:06 Lisinopril 20 Mg Tablet PO 04/26/24 08:59 20 mg QDAY JOSE Administration Morphine Sulfate 2 mg 03/25/24 21:08 03/27/24 08:01 Morphine Sulf Inj 10 Mg/Ml Vial IVP 03/30/24 21:00 2 mg Q4HR PRN Administration PAIN SCALE 7-10 (Severe Ondansetron HCl 4 mg 03/25/24 21:01 Ondansetron Inj 2 Mg/Ml Inj 2 Ml IV 04/24/24 21:00 Q6H PRN NAUSEA OR VOMITING Protocol Pantoprazole Sodium 40 mg 03/26/24 09:00 03/27/24 08:04 Pantoprazole Inj 40 Mg Vial IVP 04/25/24 08:59 40 mg QDAY JOSE Administration Sennosides 1 tab 03/26/24 09:00 03/27/24 08:05 Senna Tablet PO 04/25/24 08:59 1 tab QDAY JOSE Administration Protocol Thiamine HCl 100 mg 03/26/24 09:00 03/27/24 08:05 Thiamine 100 Mg Tablet PO 03/31/24 08:59 100 mg BID JOSE Administration Plan 84-year-old male with past medical history of hyperlipidemia, hypertension, metastatic colon 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 Gotti, appreciate recommendations. #R hip intertrochanteric fracture s/p cephalomedullary nail #Leukocytosis Patient apparently fell from bed of his trailer which was about 2 feet Denies having any concerning symptoms prior to the episode; the fall was unwitnessed but he did not lose consciousness or hit his head Presenting to the ED with sharp right-sided pain; on exam has some tenderness and reduced mobility In the ED, knee x-ray, hip/pelvic x-ray and femur x-ray ordered which confirmed right hip intertrochanteric fracture Dr. Gotti, orthopedic surgeon, consulted In the ED, patient received Zofran and morphine for nausea and pain control Leukocytosis likely secondary to acutely ill status Plan: Multimodal analgesia Zofran as needed for nausea PT consult, patient has been made aware for possible SNF need after surgery #Alcohol-use Disorder Patient drinks 2 beers daily, but rarely drinks more than that Plan: Will continue to monitor, CIWA 0 Thiamine and folate ordered #Normocytic Anemia Ddx: MUNDO, AOCD, Zinc/Copper def, aplastic anemia, malignancy, hemolysis and acute blood loss less likely Patient is a Baptism; Refuses blood products Hgb 9.9; Iron 57 TIBC 274 Ferritin 206; mildly iron deficient Plan: CBC #Hypertension Resume Amlodipine 10mg PO QD Resume Benazepril 20mg PO QD #Hyperlipidemia Resume Simvastatin 40mg PO QD #Hx of Colon CA about 18 years ago In remission Follow up outpatient Hospital Management: Lines - PIV Diet - Regular Bowel - Senna&Miralax GI prophylaxis - Protonix DVT prophylaxis - Eliquis 2.5mg BID Dispo - Pending surgery for R hip fracture with Dr. Gotti (orthopedic [facility]) - appreciate recs Code - Full The patient's plan was discussed with attending Dr. Plascencia and senior residents Dr. Garrett and Zechariah Becerril, DO PGY1 Internal Medicine Senior resident attestation: Patient evaluated and examined at the bedside, plan of care discussed with rest of the team including my attending physician, except as noted. 84-year-old male, remote history of metastatic colon cancer, hypertension hyperlipidemia who presented now with mechanical fracture of the right hip intertrochanteric fracture, admitted for surgical repair. Dr. Gotti orthopedic surgeon to consult. Patient sees a spindle frame carver, but is unsure of indication, takes statin and blood pressure medications at home, reports no history of arrhythmias or ischemic heart disease. Of note EKG showed first-degree AV block. Overnight team reported episode of bradycardia, heart rate dropped into the 39/min during sleep. Also reported second-degree AV block Mobitz type I during the episode of bradycardia. We ordered echocardiogram and consulted cardiology for possible cardiac clearance, but orthopedics was comfortable with taking the patient to the OR. #Right hip intertrochanteric fracture s/p surgery ?Analgesia per orthopedic surgeon ? Physical therapy consult ? DVT prophylaxis post hip repair, Eliquis 2.5 mg to be continued for 3 to 4 weeks, up to 35 days to be started from tomorrow. #Concern for alcohol abuse Admitting team was concern for alcohol abuse disorder, but patient reported he drinks only 2 beers per day and rarely drinks more than that, CIWA score 0, we will discontinue CIWA order set to avoid medication error in the setting of postop opioid analgesia. Will reevaluate patient if patient develops withdrawal symptoms. Tami PGY2 Attending Provider Attestation/Addendum I have examined the patient, reviewed labs and imaging findings, discussed the case with the resident(s), and reviewed entered orders. I agree with the plan of care as outlined in this note, with these additional summaries/recommendations: Patient seen at bedside. No acute overnight events. Patient is postop day #1 status post nail fixation for right hip intertrochanteric fracture. Patient reporting increased pain today and we will increase as pain regimen. Started on DVT prophylaxis. Seen by physical therapy who recommends custodial facility placement and patient in agreement. We will continue to try to wean IV pain medicines. Patient denies having a bowel movement and MiraLAX started. Repeat chemistry and hematology panel in AM. Dr. Plascencia
[2024-03-27] MEDS: POLYETHYLENE GLYCOL 17 GM PACKET PO (15:00)
[2024-03-27] MEDS: MORPHINE SULF INJ 10 MG/ML VIAL 4 MG IVP ×2 (15:04→19:36)
--- NOTE | 2024-03-27 16:20 | ESPR_ITS ---
Documentation for date of: 03/27/24 Subjective Subjective Interval history: Patient seen at bedside this AM. No overnight events. Potassium 4.2 and no Mg today, reecommend to keep above 4 and 2 respectively to avoid any arrhythmias. Avoid beta blockers Recommend PORTILLO or ARB for better BP control if needed Echo on 03/26/2024 had the following findings: Suboptimal images due to pectus excavatum Normal LV size and function. Stage I diastolic dysfunction. Estimated EF 55- 60% RV and RA not well visualized. The ascending aorta and aortic root is mildly dilated. Mild MAC. Trace MR. Mild PI. Exam Vital Signs Temp Pulse Resp BP Pulse Ox O2 Del Method O2 Flow Rate 98.2 F 76 16 119/66 93 L Nasal Cannula 1.5 03/27/24 12:00 03/27/24 12:00 03/27/24 12:03/27/24 12:00 03/27/24 12:00 03/27/24 12:03/27/24 12:00 Narrative Exam General: A/O x3, no acute distress, well-nourished, well-developed Eyes: PERRL, EOMI. Anicteric, vision grossly intact. Ears: No ear pain, no ear discharge, Hearing grossly intact. Nose: No nasal discharge. Mouth/Throat: Moist mucous membranes, no redness, no lesions. Neck: Neck supple, non-tender, no cervical lymphadenopathy. Lungs: Clear MONSE to auscultation and percussion, No accessory muscle use. Cardio: Normal S1/S2, regular rhythm, no murmurs, no JVD Abdomen: Soft, non-tender, no palpable masses, peristalsis present, no guarding or rebound. Extremities: Symmetrical, no significant deformities, no peripheral edema , non-tender, peripheral pulses presents. Skin: No rashes, no lesions, warm to touch. R hip surgical site covered with clean dressing Neuro: No focal neurological deficits. Psych: Cooperative, appropriate mood and effect. Objective Labs 03/27/24 05:00 03/27/24 05:00 Labs: Laboratory Results - last 24 hr 03/27/24 05:00 WBC 12.1 H D RBC 3.04 L Hgb 9.9 L Hct 29.6 L MCV 97 MCH 32.6 MCHC 33.4 RDW Std Deviation 47.2 H Plt Count 184 Neut % (Auto) 80 Lymph % (Auto) 8 L [place] % (Auto) 11 Eos % (Auto) 0 Baso % (Auto) 0 Neut # (Auto) 9.7 H Lymph # (Auto) 1.0 [place] # (Auto) 1.3 H Eos # (Auto) 0.0 Baso # (Auto) 0.0 Immature Gran # (Auto) 0.06 H Absolute Nucleated RBC 0.00 Immature Gran % 1 H Nucleated RBC % 0 Sodium 137 Potassium 4.2 Chloride 103 Carbon Dioxide 24.3 Anion Gap 10 BUN 15 Creatinine 0.8 Estim Creat Clear Calc 66.4 eGFR > 60 BUN/Creatinine Ratio 19 Glucose 98 Calculated Osmolality 274 L Calcium 9.6 Corrected Calcium 9.7 Total Bilirubin 0.8 AST 16 ALT 10 Alkaline Phosphatase 50 Total Protein 6.3 Albumin 3.9 Globulin 2.4 Albumin/Globulin Ratio 1.6 Quality Measures Quality Measures VTE prophylaxis Advance care planning discussed with:: patient Assessment & Plan Assessment Current Active Medications: Generic Name Dose Route Start Last Admin Trade Name Freq PRN Reason Stop Dose Admin Acetaminophen 1,000 mg 03/27/24 08:39 03/27/24 09:07 Acetaminophen 500 Mg Tablet PO 04/26/24 08:38 1,000 mg Q8HR PRN Administration Breakthrough Pain Hydrocodone Bitart/Acetaminophen 1 tab 03/25/24 21:20 03/26/24 20:33 Hydrocodone/Apap 5/325 Tablet PO 03/30/24 21:19 1 tab Q6HR PRN Administration Pain 4-6 Amlodipine Besylate 10 mg 03/27/24 09:00 03/27/24 08:05 Amlodipine Besylate 5 Mg Tablet PO 04/26/24 08:59 10 mg QDAY JOSE Administration Apixaban 2.5 mg 03/26/24 21:00 03/27/24 08:07 Apixaban 2.5 Mg Tablet PO 04/25/24 20:59 2.5 mg BID JOSE Administration Atorvastatin Calcium 20 mg 03/26/24 21:00 03/26/24 20:32 Atorvastatin Calcium 20 Mg Tablet PO 04/25/24 20:59 20 mg HS JOSE Administration Folic Acid 1 mg 03/26/24 09:00 03/27/24 08:07 Folic Acid 1 Mg Tablet PO 03/31/24 08:59 1 mg BID JOSE Administration Lisinopril 20 mg 03/27/24 09:00 03/27/24 08:06 Lisinopril 20 Mg Tablet PO 04/26/24 08:59 20 mg QDAY JOSE Administration Morphine Sulfate 4 mg 03/27/24 13:53 03/27/24 15:04 Morphine Sulf Inj 10 Mg/Ml Vial IVP 03/30/24 21:00 4 mg Q4HR PRN Administration PAIN SCALE 7-10 (Severe Ondansetron HCl 4 mg 03/25/24 21:01 Ondansetron Inj 2 Mg/Ml Inj 2 Ml IV 04/24/24 21:00 Q6H PRN NAUSEA OR VOMITING Protocol Pantoprazole Sodium 40 mg 03/26/24 09:00 03/27/24 08:04 Pantoprazole Inj 40 Mg Vial IVP 04/25/24 08:59 40 mg QDAY JOSE Administration Polyethylene Glycol 17 gm 03/27/24 14:15 03/27/24 15:00 Polyethylene Glycol 17 Gm Packet PO 04/26/24 14:14 17 gm QDAY JOSE Administration Sennosides 1 tab 03/27/24 14:05 Senna Tablet PO 04/25/24 08:59 QDAY JOSE Protocol Thiamine HCl 100 mg 03/26/24 09:00 03/27/24 08:05 Thiamine 100 Mg Tablet PO 03/31/24 08:59 100 mg BID JOSE Administration Plan 84-year-old male with a past medical history of hypertension, hyperlipidemia, metastatic colon cancer status post resection along with history of lung and liver metastasis post lobectomy in 15 to 20 years ago, Jevohah witness, chronic back pain with history of back surgery was admitted to the hospital on 03/25/2024 due to ground level fall resulting in R hip fracture. 1. Questionable Mobitz type 1 heart block - only First-degree AV block seen with 2. Left bundle branch block -EKG showed sinus rhythm with first-degree AV block as well as Left bundle branch block -No evidence of any second degree AV block Plan: -Avoid beta blockers -Recommend to keep potassium and magnesium above 4 and 2 respectively to avoid any arrhythmias 3. Essential hypertension -BP appears well controlled Plan: -Recommend to start patient on an PORTILLO or ARB for better BP control -Recommend adequate pain management for better BP control 4. R hip fracture 5. Ground level fall -Had surgery on 03/26/2024 -Continue current management as per primary care team 6. Hyperlipidemia 7. Colon cancer 8. Alcohol use disorder -Continue current management as per primary care team Continue rest of management as per primary team. We are grateful to be able to participate in Mr. Torres's care. Thank you for the consult Plan of care discussed with attending Java Software Engineer, Dr. Ester Peralta MD PGY-1 Attending Provider Attestation/Addendum I have personally seen and examined the patient separately on the above date of service and discussed the plan of care with the resident. I reviewed the resident Dr. Mays consultation progress note and agree with the resident findings and plan in the note above and have also edited the documentation to reflect my findings and plan. Aron Norman M.D. Interventional Cardiology
[2024-03-27] MEDS: ATORVASTATIN CALCIUM 20 MG TABLET PO (20:00)
[2024-03-28] VITALS (8 sets, daily range): BP systolic 110–128; BP diastolic 53–66; PULSE 70–83; RESP 14–21; TEMP 36.2–37.1; O2SAT 94–99; BMI 11.0
[2024-03-28] MEDS: HYDROcodone/APAP 5/325 TABLET 1 TAB PO (00:40)
[2024-03-28 06:11] LABS: Basophils % (Auto) 0 % (0-2.5); Eosinophils # (Auto) 0.1 Thou/mm3 (0.0-0.5); Eosinophils % (Auto) 1 % (0-10); Hematocrit 29.6 % (41.0-53.0); Immature Granulocytes % (Auto) 0 % (0-0); Immature Granulocytes Auto 0.03 Thou/mm3 (0.00-0.00); Lymphocytes # (Auto) 1.2 Thou/mm3 (1.0-4.8); Lymphocytes % (Auto) 11 % (10-50); Mean Corpuscular HGB Conc 33.8 g/dl (31.0-37.0); Mean Corpuscular Hemoglobin 32.1 pg (25.0-35.0); Mean Corpuscular Volume 95 fL (80-100); Monocytes # (Auto) 1.3 Thou/mm3 (0.0-0.8); Monocytes % (Auto) 12 % (0-12); Neutrophils # (Auto) 8.4 Thou/mm3 (1.8-7.7); Neutrophils % (Auto) 76 % (37-80); Nucleated Red Blood Cell % 0 /100 WBC (0); Platelet Count 186 Thou/mm3 (140-440); RDW Standard Deviation 45.8 fL (35.1-43.9); Red Blood Count 3.12 Miln/mm3 (4.50-5.90); White Blood Count 11.1 Thou/mm3 (3.8-10.6)
[2024-03-28 06:55] LABS: Albumin, Serum 4.1 gm/dL (3.4-4.8); Albumin/Globulin Ratio 1.8 (1.2-2.2); Alkaline Phosphatase 49 U/L (46-116); Anion Gap 8 (7-16); BUN/Creatinine Ratio 16 Ratio (12-20); Bilirubin,Total 0.7 mg/dL (0.3-1.2); Blood Urea Nitrogen 13 mg/dL (9-23); Calcium 9.5 mg/dL (8.3-10.6); Calcium (Corrected) 9.5 mg/dL (8.5-10.1); Carbon Dioxide 26.9 mMol/L (20.0-31.0); Chloride 102 mMol/L (98-107); Creatinine (Component) 0.8 mg/dL (0.6-1.3); Estimated Creatinine Clearance 66.4 mL/min (>60); Globulin 2.3 gm/dL (2.3-3.5); Glucose 102 mg/dL (74-106); Osmolality,Calculated 273 (275-295); Potassium 4.1 mMol/L (3.4-5.1); Sodium 137 mMol/L (136-145); Total Protein 6.4 gm/dL (5.7-8.2); eGFR > 60 See Note
[2024-03-28 07:00] LABS: Alanine Aminotransferase 11 U/L (10-49); Aspartate Amino Transferase < 8 U/L (0-34)
[2024-03-28] MEDS: PANTOPRAZOLE INJ 40 MG VIAL IVP (08:22)
[2024-03-28] MEDS: MORPHINE SULF INJ 10 MG/ML VIAL 4 MG IVP (08:23)
[2024-03-28] MEDS: APIXABAN 2.5 MG TABLET PO (08:23)
[2024-03-28] MEDS: FOLIC ACID 1 MG TABLET PO (08:24)
[2024-03-28] MEDS: amLODIPine BESYLATE 5 MG TABLET 10 MG PO (08:24)
[2024-03-28] MEDS: Lisinopril 20 MG TABLET PO (08:25)
[2024-03-28] MEDS: THIAMINE 100 MG TABLET PO (08:25)
[2024-03-28] MEDS: SENNA TABLET 1 TAB PO (08:25)
[2024-03-28] MEDS: POLYETHYLENE GLYCOL 17 GM PACKET PO (08:41)
--- NOTE | 2024-03-28 10:33 | PD.RESPRO ---
Documentation for date of: 03/28/24 Subjective Subjective Interval history: Patient seen at bedside this AM. No overnight events. On tire shop mechanic was again noted the patient had a questionable first-degree block, but was sinus rhythm otherwise Potassium 4.1 and no Mg today, reecommend to keep above 4 and 2 respectively to avoid any arrhythmias. Avoid beta blockers Recommend to continue PORTILLO for better BP control if needed Echo on 03/26/2024 had the following findings: Suboptimal images due to pectus excavatum Normal LV size and function. Stage I diastolic dysfunction. Estimated EF 55-60% RV and RA not well visualized. The ascending aorta and aortic root is mildly dilated. Mild MAC. Trace MR. Mild PI. Exam Vital Signs Temp Pulse Resp BP Pulse Ox O2 Del Method O2 Flow Rate 97.8 F 70 18 123/60 94 L Nasal Cannula 1.5 03/28/24 08:00 03/28/24 08:25 03/28/24 08:00 03/28/24 08:25 03/28/24 08:00 03/28/24 08:00 03/28/24 08:00 Narrative Exam General: A/O x3, no acute distress, well-nourished, well-developed Eyes: PERRL, EOMI. Anicteric, vision grossly intact. Ears: No ear pain, no ear discharge, Hearing grossly intact. Nose: No nasal discharge. Mouth/Throat: Moist mucous membranes, no redness, no lesions. Neck: Neck supple, non-tender, no cervical lymphadenopathy. Lungs: Clear MONSE to auscultation and percussion, No accessory muscle use. Cardio: Normal S1/S2, regular rhythm, no murmurs, no JVD Abdomen: Soft, non-tender, no palpable masses, peristalsis present, no guarding or rebound. Extremities: Symmetrical, no significant deformities, no peripheral edema , non-tender, peripheral pulses presents. Skin: No rashes, no lesions, warm to touch. R hip surgical site covered with clean dressing Neuro: No focal neurological deficits. Psych: Cooperative, appropriate mood and effect. Objective Labs 03/28/24 05:25 03/28/24 05:25 Labs: Laboratory Results - last 24 hr 03/28/24 05:25 WBC 11.1 H RBC 3.12 L Hgb 10.0 L Hct 29.6 L MCV 95 MCH 32.1 MCHC 33.8 RDW Std Deviation 45.8 H Plt Count 186 Neut % (Auto) 76 Lymph % (Auto) 11 [place] % (Auto) 12 Eos % (Auto) 1 Baso % (Auto) 0 Neut # (Auto) 8.4 H Lymph # (Auto) 1.2 [place] # (Auto) 1.3 H Eos # (Auto) 0.1 Baso # (Auto) 0.0 Immature Gran # (Auto) 0.03 H Absolute Nucleated RBC 0.00 Immature Gran % 0 Nucleated RBC % 0 Sodium 137 Potassium 4.1 Chloride 102 Carbon Dioxide 26.9 Anion Gap 8 BUN 13 Creatinine 0.8 Estim Creat Clear Calc 66.4 eGFR > 60 BUN/Creatinine Ratio 16 Glucose 102 Calculated Osmolality 273 L Calcium 9.5 Corrected Calcium 9.5 Total Bilirubin 0.7 AST < 8 ALT 11 Alkaline Phosphatase 49 Total Protein 6.4 Albumin 4.1 Globulin 2.3 Albumin/Globulin Ratio 1.8 Quality Measures Quality Measures VTE prophylaxis Advance care planning discussed with:: patient Assessment & Plan Assessment Current Active Medications: Generic Name Dose Route Start Last Admin Trade Name Freq PRN Reason Stop Dose Admin Acetaminophen 650 mg 03/28/24 08:39 Acetaminophen 500 Mg Tablet PO 04/26/24 08:38 Q8HR PRN Breakthrough Pain Hydrocodone Bitart/Acetaminophen 1 tab 03/28/24 08:13 Hydrocodone/Apap 5/325 Tablet PO 03/30/24 21:19 Q6HR PRN Pain 1-6 Hydrocodone Bitart/Acetaminophen 1 tab 03/28/24 08:38 Hydrocodone/Apap 10/325 Tab PO 04/02/24 08:37 Q6HR PRN Pain 7-10 Amlodipine Besylate 10 mg 03/27/24 09:00 03/28/24 08:24 Amlodipine Besylate 5 Mg Tablet PO 04/26/24 08:59 10 mg QDAY JOSE Administration Apixaban 2.5 mg 03/26/24 21:00 03/28/24 08:23 Apixaban 2.5 Mg Tablet PO 04/25/24 20:59 2.5 mg BID JOSE Administration Atorvastatin Calcium 20 mg 03/26/24 21:00 03/27/24 20:00 Atorvastatin Calcium 20 Mg Tablet PO 04/25/24 20:59 20 mg HS JOSE Administration Folic Acid 1 mg 03/26/24 09:00 03/28/24 08:24 Folic Acid 1 Mg Tablet PO 03/31/24 08:59 1 mg BID JOSE Administration Glycerin 1 each 03/28/24 10:00 Glycerin, Adult 1 Ea Supp PA 04/27/24 09:59 QDAY JOSE Lisinopril 20 mg 03/27/24 09:00 03/28/24 08:25 Lisinopril 20 Mg Tablet PO 04/26/24 08:59 20 mg QDAY JOSE Administration Ondansetron HCl 4 mg 03/25/24 21:01 Ondansetron Inj 2 Mg/Ml Inj 2 Ml IV 04/24/24 21:00 Q6H PRN NAUSEA OR VOMITING Protocol Pantoprazole Sodium 40 mg 03/26/24 09:00 03/28/24 08:22 Pantoprazole Inj 40 Mg Vial IVP 04/25/24 08:59 40 mg QDAY JOSE Administration Polyethylene Glycol 17 gm 03/27/24 14:15 03/28/24 08:41 Polyethylene Glycol 17 Gm Packet PO 04/26/24 14:14 17 gm QDAY JOSE Administration Sennosides 1 tab 03/27/24 14:05 03/28/24 08:25 Senna Tablet PO 04/25/24 08:59 1 tab QDAY JOSE Administration Protocol Thiamine HCl 100 mg 03/26/24 09:00 03/28/24 08:25 Thiamine 100 Mg Tablet PO 03/31/24 08:59 100 mg BID JOSE Administration Plan 84-year-old male with a past medical history of hypertension, hyperlipidemia, metastatic colon cancer status post resection along with history of lung and liver metastasis post lobectomy in 15 to 20 years ago, Jevohah witness, chronic back pain with history of back surgery was admitted to the hospital on 03/25/2024 due to ground level fall resulting in R hip fracture. 1. Questionable Mobitz type 1 heart block - only First-degree AV block seen with 2. Left bundle branch block -EKG showed sinus rhythm with first-degree AV block as well as Left bundle branch block -No evidence of any second degree AV block Plan: -Avoid beta blockers -Recommend to keep potassium and magnesium above 4 and 2 respectively to avoid any arrhythmias 3. Essential hypertension -BP appears well controlled Plan: -Recommend to start patient on an PORTILLO or ARB for better BP control -Recommend adequate pain management for better BP control 4. R hip fracture 5. Ground level fall -Had surgery on 03/26/2024 -Continue current management as per primary care team 6. Hyperlipidemia 7. Colon cancer 8. Alcohol use disorder -Continue current management as per primary care team Continue rest of management as per primary team. We are grateful to be able to participate in Mr. Torres's care. Thank you for the consult Plan of care discussed with attending Interior Decorator Painting, Dr. Ester Peralta MD PGY-1 Attending Provider Attestation/Addendum I have personally seen and examined the patient separately on the above date of service and discussed the plan of care with the resident. I reviewed the resident Dr. Mays consultation progress note and agree with the resident findings and plan in the note above and have also edited the documentation to reflect my findings and plan. Aron Norman M.D. Interventional Cardiology
[2024-03-28] MEDS: GLYCERIN, ADULT 1 EA SUPP 1 EACH PR (10:39)
--- NOTE | 2024-03-28 13:11 | PD.RESDS ---
Planned Discharge Date 03/28/24 DS: Providers Provider Date of admission: 03/25/24 21:01 Primary care physician: Physician No Primary/Family Admitting Provider: Evelio Pendleton MD Attending Provider on Admission: Jasiel Plascencia MD Consults: 03/25/24 21:01 Consult to Orthopedic Stat Comment: Consulting Provider: Kingsley Gotti 03/25/24 21:29 Referral Physical Therapy Routine Comment: Physician Instructions: 03/26/24 08:38 Consult to Cardiology Routine Comment: Consulting Provider: Aron Norman Instructions: LBB and Mobitz type 1 block on EKG, pending sx for hip fracture Attending Provider on DC: Jasiel Plascencia MD Discharging Provider: Jasiel Plascencia MD DS: Diagnosis Problem List Completed Was Problem List Reviewed/Reconciled?: Yes Hospital Course Hospital Course Hospital course: 84-year-old male with past medical history of hyperlipidemia, hypertension, metastatic colon cancer (metastasis to liver and lung, s/p lobectomy about 18 years ago) presented after he fell from the bed of his trailer, which he states was about 2 feet will be admitted for pain management along with surgery which is scheduled for 03/[address] Gotti, appreciate recommendations. Patient had successful surgery of right hip intertrochanteric fracture status post cephalomedullary nail on 03/26. Patient worked with physical therapy and improved each day. Walking over 20 feet today with physical therapy. Patient's pain was tolerated at first with IV morphine and transition to p.o. [place] 10 mg. Patient takes hydrocodone?acetaminophen at home for back pain 15 MME/day. Patient tolerated his diet with no nausea or vomiting and had a bowel movement this afternoon. Patient will be discharged to SNF facility to increase his strength until he is safe to go home. Patient's vital signs are stable upon discharge. Patient was started on Eliquis 2.5 mg twice daily for anticoagulation after hip fracture repair. #R hip intertrochanteric fracture s/p cephalomedullary nail #Leukocytosis #Alcohol-use Disorder #Normocytic Anemia #Hypertension #Hyperlipidemia #Hx of Colon CA about 18 years ago The patient's plan was discussed with attending Dr. Plascencia and senior resident Dr. Tami Becerril, PGY1 Internal Medicine Senior resident attestation: Patient evaluated and examined at the bedside, plan of care discussed with rest of the team including my attending physician, except as noted. Follow-up with the primary care physician within 1 week from discharge Follow-up with your orthopedic doctor within 1 week from discharge Use medications as prescribed Follow-up with your primary care physician for anemia Regular prescribing a medication called Eliquis which is a blood thinner 2.5 mg 2 times a day. Please monitor if there is any source of bleeding you need to stop the medication immediately and return to the emergency department Follow-up with a bakery sales clerk within 1 week from discharge due to incidental finding of slow heart rate. Tami PGY2 Time Spent with Patient Time attestation: Total time spent providing and/or coordinating discharge services: Time spent: Greater than 30 minutes Exam Vital Signs Temp Pulse Resp BP Pulse Ox O2 Del Method O2 Flow Rate 97.7 F 81 16 110/62 95 Nasal Cannula 1.5 03/28/24 12:00 03/28/24 12:03/28/24 12:03/28/24 12:03/28/24 12:03/28/24 12:00 03/28/24 12:00 Narrative Exam General: Well appearing, well nourished, in no distress HEENT: Normocephalic, atraumatic, conjunctiva clear, sclera non-icteric, EOM intact Heart: Regular rate and rhythm, no murmur or gallop Lungs: Clear to auscultation, no wheezes Abdomen: soft, nontender to palpation, non distended Extremities: No amputations or deformities, cyanosis, edema or varicosities, peripheral pulses intact, <2 sec cap refill of B/L LE, Limited ROM of RLE due to pain, right trochanteric point tenderness, no hematoma Neurologic: Moves all extremities spontaneously, A&Ox4 Psychiatric: Cooperative, normal mood and affect. Discharge Plan Plan Patient Disposition: Xfer Skilled [facility] (SNF) Patient condition on transfer: Stable Care Plan Goals: Follow-up with the primary care physician within 1 week from discharge Follow-up with your orthopedic doctor within 1 week from discharge Use medications as prescribed Follow-up with your primary care physician for anemia Regular prescribing a medication called Eliquis which is a blood thinner 2.5 mg 2 times a day. Please monitor if there is any source of bleeding you need to stop the medication immediately and return to the emergency department Follow-up with a bakery sales clerk within 1 week from discharge due to incidental finding of slow heart rate. Prescriptions/Referrals Prescriptions/Med Rec: New sennosides [Senna Lax] 8.6 mg Tablet 8.6 mg PO QDAY 14 Days Qty: 14 0RF hydrocodone-acetaminophen 5-325 mg Tablet 1 tab PO Q6HR MDD 3 pills max PRN (Reason: Pain 4-6) 3 Days Qty: 10 0RF Eliquis 2.5 mg tablet 2.5 mg PO BID 21 Days Qty: 42 0RF Continued simvastatin 40 mg tablet 40 mg PO QDAY Patient Comments: TAKE 1 TABLET BY MOUTH EVERY DAY oxycodone-acetaminophen 10-325 mg tablet 0.5 tab PO BID PRN (Reason: pain) amlodipine 10 mg tablet 10 mg PO QDAY Patient Comments: TAKE 1 TABLET BY MOUTH EVERY DAY benazepril 20 mg tablet 20 mg PO QDAY Patient Comments: TAKE 1 TABLET BY MOUTH EVERY DAY Referrals: No Primary/Family,Physician [Primary Care Provider] - Patient/Caregiver Discharge Instructions Discharge Activity: as per physical therapy Education Materials: Eliquis Oral Tablet 2.5 mg, After a Hip Fracture: Common Questions, Preventing Surgical Site Infections, Fx Femur ORIF About Print Language: Greenlandic Stand Alone Forms: Vania Award Info., Patient Portal Info Letter Discharge Order Discharge Orders: Discharge (Routine); Ordered 03/28/24 Ordered By: Karina Garrett Quality Discharge Quality Measures VTE prophylaxis MD Attestestation MD Attestation I have examined the patient, reviewed labs and imaging findings, discussed the case with the resident(s), and reviewed entered orders. I agree with the plan of care as outlined in this note. Dr. Plascencia
--- NOTE | 2024-03-28 15:30 | PC.SS ---
Addendum entered by DAYANARA Livingston 03/28/24 15:38: Patient agreeable with d/c plan to SNF today. Transportation arranged with [facility], ETA 7pm. Bed side nurse, patient and patient's are aware. [facility] SNF was notified. Original Note: SS update: patient had bowel movement per bed side nurse and able to d/c to SNF.
== END 2024-03-28 20:00 | disposition skilled nursing facility (03) | DRG 482 ==
LOC: SERX 17:21 → SERHOLD 21:21 → S3NX 22:15
PROVIDERS: Nurse Practitioner Primary Care; Orthopaedic Surgery Adult Reconstructive Orthopaedic Surgery; Admitting Provider Internal Medicine; Emergency Provider Emergency Medicine; Visit Provider Student in an Organized Health Care Education/Training Program
PROC: 0QS606Z Reposition Right Upper Femur with Intramedullary Internal Fixation Device, Open Approach (ICD-10-PCS; principal; 2024-03-26 16:00)
DX: S72.141A Displaced intertrochanteric fracture of right femur, initial encounter for closed fracture (principal); E78.00 Pure hypercholesterolemia, unspecified; D72.829 Elevated white blood cell count, unspecified; D64.9 Anemia, unspecified; F10.10 Alcohol abuse, uncomplicated; M54.9 Dorsalgia, unspecified; G89.29 Other chronic pain; I44.0 Atrioventricular block, first degree; Q67.6 Pectus excavatum; I11.9 Hypertensive heart disease without heart failure; I44.7 Left bundle-branch block, unspecified; Z96.612 Presence of left artificial shoulder joint; Z85.038 Personal history of other malignant neoplasm of large intestine; Z85.05 Personal history of malignant neoplasm of liver; Z85.118 Personal history of other malignant neoplasm of bronchus and lung; Z90.49 Acquired absence of other specified parts of digestive tract; Z87.891 Personal history of nicotine dependence; Z90.2 Acquired absence of lung [part of]; Z79.899 Other long term (current) drug therapy; Z53.1 Procedure and treatment not carried out because of patient's decision for reasons of belief and group pressure; W06.XXXA Fall from bed, initial encounter
CPT/HCPCS: 36415; 72170; 73502; 73552; 73562; 76000; 80053; 82728; 83540; 83550; 83735; 84100; 85025; 85610; 85730; 87081; 93005; 93225; 93306; 96374; 96375; 97162; 99285; A4217; A4649; C1713; J0689; J0690; J2250; J2270; J2274; J2371; J2405; J2470; J2704; J3010; J3490; A9270; J1596

== ENCOUNTER 2024-04-08 10:43 | Outpatient (AMB) | payer MEDICARE, SELFPAY ==
--- NOTE | 2024-04-08 11:39 | PD.ORTHCLVIS ---
Vital signs 04/08/24 11:40 Height 1.78 m Height Method Stated Weight 64.098 kg Weight Measurement Method Standing Scale BMI 20.2 BP 103/59 L Blood Pressure Source Automatic Cuff Blood Pressure Location Left Upper Arm Position Sitting Respiration 18 Pulse 78 Pulse Source Monitor Temp 97.8 F Temp Source Temporal Artery Scan Pulse Oximetry (%) 98 Oxygen Delivery Method Room Air Med/Allergies Allergies & Medications Allergies No Known Allergies Allergy (Verified 04/08/24 11:40) Medication Reconciliation amlodipine 10 mg tablet 10 mg PO QDAY 10/11/17 [History Confirmed 04/08/24] benazepril 20 mg tablet 20 mg PO QDAY 10/11/17 [History Confirmed 04/08/24] oxycodone-acetaminophen 10 mg-325 mg tablet 0.5 tab PO BID PRN pain 10/11/17 [History Confirmed 04/08/24] simvastatin 40 mg tablet 40 mg PO QDAY 10/11/17 [History Confirmed 04/08/24] apixaban 2.5 mg tablet (Eliquis) 2.5 mg PO BID 3 weeks #42 tabs 03/28/24 [Rx Confirmed 04/08/24] sennosides 8.6 mg tablet (Senna Lax) 8.6 mg PO QDAY 14 days #14 tabs 03/28/24 [Rx Confirmed 04/08/24] Exam Exam Patient is in no acute distress and is cooperative with the examination today. Patient has a normal mood and affect. Breathing is nonlabored. In no respiratory distress. Bilateral extremities were evaluated and demonstrates sensation intact to light touch. Palpable pedal pulses are present. No significant edema is present. Right hip incision is clean dry and intact Assessment and Plan Problem List (1) Hip fracture: Status: Acute Plan: Patient is doing well after a cephalomedullary nail. We will see him back in approximately 3 weeks with new x-rays. He is leaving to [place] so we would like to see him before that Advanced Care Planning Discussion Advance care planning discussed with:: patient Office Procedures GNS Level of Care Nursing/Assessment Patient Status: Established Patient Nursing Assessment/Reassesment: Medication Reconciliation, Update PMH in EMR and Vital Signs Coordination of Care: Complex Care and Chronic Disease 1-5, Education Complex Pt/Fam, Consent,records obtained, informed consent, Results/Orders obtained and Staff clarify orders Established Patient Charge Established Patient Point Assignment: 95 Established Patient Point Charge: EP Level 3 (80-115) MA Intake Visit Data Collection New Patient or Established: Established Patient (seen at [facility] within 3 years) Reason for Visit:: FOLLOW UP Seen by Clinical Staff ONLY (RN/MA): No Customer Account Specialist Required: No PCP or OBGYN visit in last 3 months: Yes Hx Now: No Do You Feel Safe at Home: Yes Authorities Contacted: N/A Questionairres Past Medical History Past Medical History Have you ever been diagnosed with any of the following: Neurological Problems Seizures: No Cardiology Problems Hypercholesterolemia: Yes Congestive Heart Failure: No Hypertension: Yes Respiratory Problems Chronic Obstructive Pulmonary Disease (COPD): No Stomache/Intestinal Problems Gastroesophageal Reflux Disease: Yes Genital/Urinary Problems Renal Disease: No Endocrine Problems Diabetes Mellitus Type 1: No Diabetes Mellitus Type 2: No Other Problems Down Syndrome: No Developmental Delay: No Falls: No (pt first fall is for this admission) Blood Transfusions: No (No blood or blood products) Blood Transfusion Reaction: No Anesthesia Reactions: No MRSA: No Clostridium Difficile: No Cancer: Yes (colon cancer) Subjective Visit Visit for: follow up visit Immunization / Flu Flu Vaccine in the Last 12 Months: No Flu Vaccine Exclusion Criteria: No Exclusion Criteria History of Present Illness Chief complaint: Right hip pain Patient is a pleasant 84-year-old male who is status post right hip intertrochanteric nail. He is doing well. He has minimal pain and is using a walker. Is going back to [place] in 3 weeks Pain Pain level (0-10): 0 Ambulatory data Ambulatory device: walker Treatments Improvement with previous injections: No Improvement with PT: No Improvement with NSAIDS: no Review of Systems Review of Systems: All systems negative unless otherwise noted in HPI.
[2024-04-08 11:40] VITALS: BP 103/59; PULSE 78; RESP 18; TEMP 36.6; O2SAT 98; BMI 20.2
== END 2024-04-08 11:57 | disposition home or self-care (01) ==
LOC: HODSRG 10:43
PROVIDERS: Supervising Provider Orthopaedic Surgery Adult Reconstructive Orthopaedic Surgery; Visit Provider Orthopaedic Surgery Adult Reconstructive Orthopaedic Surgery
DX: Z98.890 Other specified postprocedural states (principal); M25.551 Pain in right hip; S72.009D Fracture of unspecified part of neck of unspecified femur, subsequent encounter for closed fracture with routine healing; X58.XXXD Exposure to other specified factors, subsequent encounter; I10 Essential (primary) hypertension; E78.00 Pure hypercholesterolemia, unspecified; K21.9 Gastro-esophageal reflux disease without esophagitis
CPT/HCPCS: 99213; G0463

== ENCOUNTER → 2024-04-24 | Outpatient (CLI) | payer MEDICARE, SELFPAY ==
--- NOTE | 2024-04-24 14:35 | XR_ITS ---
Examination: Right knee 4 views TECHNIQUE: AP oblique lateral axial right knee 4 views Exam date and time: September 22, 2024 1449 hours INDICATIONS: Right knee pain beginning 2 weeks ago. 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
--- NOTE | 2024-04-24 14:35 | XR_ITS ---
Examination:Right hip AP, lateral, AP pelvis 3 views Technique: Hip AP lateral, AP pelvis, 3 views Exam date and time:April 24, 2024 1444 hours INDICATIONS: Acute intertrochanteric fracture right hip March 25, 2024 postop surgery 2 weeks ago FINDINGS: Postop reduction internal fixation right hip fracture Significant partial healing with anatomic alignment IMPRESSION: Significant partial healing right hip fracture with anatomic alignment.
== END | disposition home or self-care (01) ==
PROVIDERS: Referring Provider Orthopaedic Surgery Adult Reconstructive Orthopaedic Surgery; Visit Provider Orthopaedic Surgery Adult Reconstructive Orthopaedic Surgery
DX: S72.091A Other fracture of head and neck of right femur, initial encounter for closed fracture (principal); X58.XXXA Exposure to other specified factors, initial encounter; M17.11 Unilateral primary osteoarthritis, right knee
CPT/HCPCS: 73502; 73564

== ENCOUNTER 2024-04-29 13:22 | Outpatient (AMB) | payer MEDICARE, SELFPAY ==
--- NOTE | 2024-04-29 13:31 | PD.ORTHCLVIS ---
Vital signs 04/29/24 13:32 Height 1.78 m Height Method Stated Weight 65.828 kg Weight Measurement Method Standing Scale BMI 20.7 BP 105/63 Blood Pressure Source Automatic Cuff Blood Pressure Location Left Upper Arm Position Sitting Respiration 18 Pulse 89 Pulse Source Monitor Temp 97.8 F Temp Source Temporal Artery Scan Pulse Oximetry (%) 91 L Oxygen Delivery Method Room Air Med/Allergies Allergies & Medications Allergies No Known Allergies Allergy (Verified 04/29/24 13:32) Medication Reconciliation amlodipine 10 mg tablet 10 mg PO QDAY 10/11/17 [History Confirmed 04/29/24] benazepril 20 mg tablet 20 mg PO QDAY 10/11/17 [History Confirmed 04/29/24] oxycodone-acetaminophen 10 mg-325 mg tablet 0.5 tab PO BID PRN pain 10/11/17 [History Confirmed 04/29/24] simvastatin 40 mg tablet 40 mg PO QDAY 10/11/17 [History Confirmed 04/29/24] Exam Exam Patient is in no acute distress and is cooperative with the examination today. Patient has a normal mood and affect. Breathing is nonlabored. In no respiratory distress. Bilateral extremities were evaluated and demonstrates sensation intact to light touch. Palpable pedal pulses are present. No significant edema is present. Right hip incision is clean dry and intact. He is walking with a walker and has minimal pain. There is no pain with logroll Assessment and Plan Problem List (1) Hip fracture: Status: Acute Plan: Patient is doing well after a cephalomedullary nail. His x-rays look great. He is moving back to [place] soon. We discussed that I would like to see him one more time in approximately 2 months Advanced Care Planning Discussion Advance care planning discussed with:: patient Office Procedures GNS Level of Care Nursing/Assessment Patient Status: Established Patient Nursing Assessment/Reassesment: Medication Reconciliation, Update PMH in EMR and Vital Signs Coordination of Care: Complex Care and Chronic Disease 1-5, Education Complex Pt/Fam, Consent,records obtained, informed consent, Results/Orders obtained and Staff clarify orders Established Patient Charge Established Patient Point Assignment: 95 Established Patient Point Charge: EP Level 3 (80-115) MA Intake Visit Data Collection New Patient or Established: Established Patient (seen at [facility] within 3 years) Reason for Visit:: HIP FRACTURE Seen by Clinical Staff ONLY (RN/MA): No [employer] Binder Required: No PCP or OBGYN visit in last 3 months: Yes Hx Now: No Do You Feel Safe at Home: Yes Authorities Contacted: N/A Questionairres Past Medical History Past Medical History Have you ever been diagnosed with any of the following: Neurological Problems Seizures: No Cardiology Problems Hypercholesterolemia: Yes Congestive Heart Failure: No Hypertension: Yes Respiratory Problems Chronic Obstructive Pulmonary Disease (COPD): No Stomache/Intestinal Problems Gastroesophageal Reflux Disease: Yes Genital/Urinary Problems Renal Disease: No Endocrine Problems Diabetes Mellitus Type 1: No Diabetes Mellitus Type 2: No Other Problems Down Syndrome: No Developmental Delay: No Falls: No (pt first fall is for this admission) Blood Transfusions: No (No blood or blood products) Blood Transfusion Reaction: No Anesthesia Reactions: No MRSA: No Clostridium Difficile: No Cancer: Yes (colon cancer) Subjective Visit Visit for: follow up visit and hip Immunization / Flu Flu Vaccine in the Last 12 Months: No Flu Vaccine Exclusion Criteria: No Exclusion Criteria History of Present Illness Chief complaint: right hip paIN Ousmane is doing well status post right hip cephalomedullary nail. He is doing well and has minimal pain Pain Pain level (0-10): 4 Pain duration: COMES AND GOES Pain quality: aching Associated signs & symptoms: none Ambulatory data Ambulatory device: walker Treatments Improvement with previous injections: No Improvement with PT: No Improvement with NSAIDS: no Review of Systems Review of Systems: All systems negative unless otherwise noted in HPI.
[2024-04-29 13:32] VITALS: BP 105/63; PULSE 89; RESP 18; TEMP 36.6; O2SAT 91; BMI 20.7
== END 2024-04-29 13:52 | disposition home or self-care (01) ==
LOC: HODSRG 13:22
PROVIDERS: Supervising Provider Orthopaedic Surgery Adult Reconstructive Orthopaedic Surgery; Visit Provider Orthopaedic Surgery Adult Reconstructive Orthopaedic Surgery
DX: S72.009D Fracture of unspecified part of neck of unspecified femur, subsequent encounter for closed fracture with routine healing (principal); X58.XXXD Exposure to other specified factors, subsequent encounter; Z98.890 Other specified postprocedural states; I10 Essential (primary) hypertension; E78.00 Pure hypercholesterolemia, unspecified; K21.9 Gastro-esophageal reflux disease without esophagitis
CPT/HCPCS: 99213; G0463